=== PATIENT | female | born 1970 | race Caucasian/White ===

== ENCOUNTER 2016-12-26 11:20 | Emergency (ER) | payer BC ==
[~2016-12-26] VITALS: Ht 160 cm; Wt 115.4 kg
[~2016-12-26 11:20] MED LIST: MTR600X PO; OXYC-643 PO
[2016-12-26 11:22] VITALS: TEMP 36.5; Ht 160 cm; Wt 115.4 kg
--- NOTE | 2016-12-26 11:57 | DIAGNOSTIC IMAGING REPORT ---
CHEST ONE VIEW PORTABLE CLINICAL HISTORY: Dizziness. Nausea. COMPARISON STUDY: No previous studies for comparison. FINDINGS: Lung volumes are normal. Lungs are clear. There is no pneumothorax or pleural effusion. Cardiac size is normal. Mediastinal contours are normal. There is no evidence of pulmonary edema. IMPRESSION: No acute cardiopulmonary findings. Electronically signed by: Nayan Rodrigez M.D. 12/26/2016 11:56 AM Dictated Date/Time: 12/26/2016 11:55 AM
[2016-12-26] MEDS ORDERED: ELUX1TAB2 PO (12:03)
[2016-12-26] MEDS ORDERED: CLONIDINE HCL 0.1 MG TAB PO ONE (12:15)
[2016-12-26 12:23] LABS: URINE APPEARANCE CLEAR (CLEAR); URINE BILIRUBIN NEG (NEG); URINE COLOR YELLOW; URINE EPITHELIAL CELL AUTO >30 /lpf (0-5); URINE NITRITE NEG (NEG); URINE SPECIFIC GRAVITY 1.013 (1.000-1.030); UROBILINOGEN NEG (NEG); ZZUR CULT IF INDIC CLEAN CATCH NO
[2016-12-26 12:24] LABS: BASO % 0.6 %; BASO ABS # 0.03 K/uL (0-0.2); COMPLETE YES; EOS % 1.2 %; HEMATOCRIT 42.3 % (37-47); IG% 0.2 %; LYMPH % 22.2 %; LYMPH ABS # 1.12 K/uL (1.2-3.4); MEAN CELL VOLUME 88.7 fL (80-100); MEAN CORPUSCULAR HEMOGLOBIN 29.6 pg (25-34); MEAN CORPUSCULAR HGB CONC 33.3 g/dl (32-36); MEAN PLATELET VOLUME 11.4 fL (7.4-10.4); MONO % 8.3 %; NEUT % 67.5 %; PLATELET COUNT 236 K/uL (130-400); RED BLOOD COUNT 4.77 M/uL (4.2-5.4); WHITE BLOOD COUNT 5.05 K/uL (4.8-10.8)
[2016-12-26] MEDS ORDERED: ONDANSETRON 4MG OD TAB PO ONE (12:30)
[2016-12-26 12:32] LABS: MANUAL MICROSCOPIC REQUIRED? NO; REVIEW REQ? NO
[2016-12-26 12:45] LABS: BUN/CREATININE RATIO 8.6 (10-20); CREATININE 0.88 mg/dl (0.60-1.20); POTASSIUM 3.6 mmol/L (3.5-5.1)
[2016-12-26 12:55] LABS: ALB/GLOB RATIO 1.1 (0.9-2); CKMB/CK RATIO 0.7 (0-3.0); THYROID STIMULATING HORMONE 2.21 uIu/ml (0.300-4.500)
--- NOTE | 2016-12-26 13:05 | DIAGNOSTIC IMAGING REPORT ---
HEAD CT NONCONTRAST CT DOSE: 537.48 mGy.cm HISTORY: Syncope. Head injury. TECHNIQUE: Multiaxial CT images of the head were performed without the use of intravenous contrast. Automated exposure control was utilized for this study. Comparison: None. Findings: The paranasal sinuses and mastoid air cells are clear. The calvarium and skull base are intact. The ventricles and sulci are within normal limits. There is no mass, hematoma, midline shift, or acute infarct. Impression: No acute intracranial abnormality. Electronically signed by: Abdirashid Munoz M.D. 12/26/2016 1:03 PM Dictated Date/Time: 12/26/2016 1:00 PM
[2016-12-26] MEDS ORDERED: HYDR12.55 PO (13:39)
--- NOTE | 2016-12-26 13:39 | EMERGENCY ROOM VISIT NOTE ---
History Report prepared by Anabela: Aric Power Under the Supervision of: Dr. Viraj Wells D.O. First contact with patient: 12:02 Chief Complaint: DIZZY Stated Complaint: LIGHTHEADED, DIZZY,NAUSEA-FELL LAST PM-BLACKED OUT Nursing Triage Summary: Became dizzy last night and blacked out. Has been dizzy ever since. History of Present Illness The patient is a 46 year old female who presents to the Emergency Room with complaints of a syncopal episode that occurred around 2029 last night. She says that she was lying in bed last night, and heard her phone ring so she got up and walked to her dresser to get her phone. The patient says that she started to get dizzy, lightheaded, and nauseous when she was walking to the dresser. She then read the text message, and then passed out and fell back onto the floor. The patient says that she does not know how long she was out. She says that when she woke up, she was still dizzy and it was hard for her to walk, so she crawled back into bed. The patient states that she is now able to ambulate fine, but she has persistently felt dizzy, lightheaded, and nauseous. She notes that she started getting a headache localized around her forehead 2 days ago, but did not think much of it. She says that this headache has persisted. The patient denies any weakness in her arms or legs. The patient's family notes that the patient had her blood pressure last checked in March of last year, and it was 110/86. The patient started a new medication for irritable bowel syndrome, and started it in March of last year as well. The patient's family notes that the patient has been stressed recently. Source of History: patient, family Onset: 2029 Position: other (global - syncope) Timing: other (episode) Associated Symptoms: + headache (for 2 days around forehead), + nausea, No weakness (in arms or legs) Note: Associated symptoms: Dizziness, lightheadedness. Denies current ambulatory difficulties. Review of Systems See HPI for pertinent positives & negatives. A total of 10 systems reviewed and were otherwise negative. Past Medical & Surgical Medical Problems: (1) IBS (irritable bowel syndrome) Family History Cancer Diabetes mellitus Gallbladder disease Heart disease Hypertension Kidney disease Seizures Social History Smoking Status: Never Smoker Smokeless Tobacco Use: No Alcohol Use: none Marital Status: Housing Status: lives alone Occupation Status: employed Current/Historical Medications Scheduled Eluxadoline (Viberzi), 100 MG PO BID Hydrochlorothiazide (Hydrochlorothiazide), 1 TAB PO DAILY Allergies Coded Allergies: Prednisone (Unverified Allergy, Intermediate, BLOTCHES ALL OVER SKIN, 12/26) Physical Exam Vital Signs Date Time Temp Pulse Resp B/P Pulse Ox O2 Delivery O2 Flow Rate FiO2 12/26/16 13:50 71 18 130/91 96 Room Air 12/26/16 13:21 71 18 153/89 99 Room Air 12/26/16 12:39 73 16 178/107 98 Room Air 12/26/16 12:02 72 12/26/16 11:36 92 240/128 77 179/126 81 196/158 12/26/16 11:22 36.5 68 20 200/109 98 Room Air Physical Exam VITAL SIGNS: were reviewed as above. GENERAL:Non-toxic in appearance. SKIN: Warm dry and pink. HEAD: Normocephalic and atraumatic. OROPHARYNX: Is clear and moist NECK: Supple without lymphadenopathy or meningismus. LUNGS: clear. HEART: Regular rate and rhythm. ABDOMEN: Soft and nontender. EXTREMITIES: Warm and well perfused. NEUROLOGICALLY: Awake alert and oriented without focal deficit. Cranial nerves 2 -12 are intact. There is no pronator drift. Cerebellar testing is within normal limits. There is no nystagmus. There is no facial droop. Speech is clear. Vision is grossly normal. MUSCULOSKELETAL: Good muscle tone. No evidence of trauma. Medical Decision & Procedures ER Provider Diagnostic Interpretation: Radiology results as stated below per my review and radiologist interpretation: CHEST ONE VIEW PORTABLE CLINICAL HISTORY: Dizziness. Nausea. COMPARISON STUDY: No previous studies for comparison. FINDINGS: Lung volumes are normal. Lungs are clear. There is no pneumothorax or pleural effusion. Cardiac size is normal. Mediastinal contours are normal. There is no evidence of pulmonary edema. IMPRESSION: No acute cardiopulmonary findings. Electronically signed by: Nayan Rodrigez M.D. 12/26/2016 11:56 AM Dictated Date/Time: 12/26/2016 11:[address] CT DOSE: 537.48 mGy.cm HISTORY: Syncope. Head injury. TECHNIQUE: Multiaxial CT images of the head were performed without the use of intravenous contrast. Automated exposure control was utilized for this study. Comparison: None. Findings: The paranasal sinuses and mastoid air cells are clear. The calvarium and skull base are intact. The ventricles and sulci are within normal limits. There is no mass, hematoma, midline shift, or acute infarct. Impression: No acute intracranial abnormality. Electronically signed by: Abdirashid Munoz M.D. 12/26/2016 1:03 PM Dictated Date/Time: 12/26/2016 1:00 PM Laboratory Results 12/26/16 12:00 Red Blood Count 4.77, Mean Corpuscular Volume 88.7, Mean Corpuscular Hemoglobin 29.6, Mean Corpuscular Hemoglobin Concent 33.3, Mean Platelet Volume 11.4, Neutrophils (%) (Auto) 67.5, Lymphocytes (%) (Auto) 22.2, Monocytes (%) (Auto) 8.3, Eosinophils (%) (Auto) 1.2, Basophils (%) (Auto) 0.6, Neutrophils # (Auto) 3.41, Lymphocytes # (Auto) 1.12, Monocytes # (Auto) 0.42, Eosinophils # (Auto) 0.06, Basophils # (Auto) 0.03 12/26/16 12:00 Test 12/26/16 11:35 12/26/16 12:00 12/26/16 12:02 Urine Color YELLOW Urine Appearance CLEAR (CLEAR) Urine pH 8.0 (4.5-7.5) Urine Specific Victor 1.013 (1.000-1.030) Urine Protein NEG (NEG) Urine Glucose (UA) NEG (NEG) Urine Ketones NEG (NEG) Urine Occult Blood NEG (NEG) Urine Nitrite NEG (NEG) Urine Bilirubin NEG (NEG) Urine Urobilinogen NEG (NEG) Urine Leukocyte Esterase NEG (NEG) Urine WBC (Auto) 1-5 /hpf (0-5) Urine RBC (Auto) 0-4 /hpf (0-4) Urine Hyaline Casts (Auto) 1-5 /lpf (0-5) Urine Epithelial Cells (Auto) >30 /lpf (0-5) Urine Bacteria (Auto) NEG (NEG) White Blood Count 5.05 K/uL (4.8-10.8) Red Blood Count 4.77 M/uL (4.2-5.4) Hemoglobin 14.1 g/dL (12.0-16.0) Hematocrit 42.3 % (37-47) Mean Corpuscular Volume 88.7 fL (80-100) Mean Corpuscular Hemoglobin 29.6 pg (25-34) Mean Corpuscular Hemoglobin Concent 33.3 g/dl (32-36) Platelet Count 236 K/uL (130-400) Mean Platelet Volume 11.4 fL (7.4-10.4) Neutrophils (%) (Auto) 67.5 % Lymphocytes (%) (Auto) 22.2 % Monocytes (%) (Auto) 8.3 % Eosinophils (%) (Auto) 1.2 % Basophils (%) (Auto) 0.6 % Neutrophils # (Auto) 3.41 K/uL (1.4-6.5) Lymphocytes # (Auto) 1.12 K/uL (1.2-3.4) Monocytes # (Auto) 0.42 K/uL (0.11-0.59) Eosinophils # (Auto) 0.06 K/uL (0-0.5) Basophils # (Auto) 0.03 K/uL (0-0.2) RDW Standard Deviation 43.6 fL (36.4-46.3) RDW Coefficient of Variation 13.3 % (11.5-14.5) Immature Granulocyte % (Auto) 0.2 % Immature Granulocyte # (Auto) 0.01 K/uL (0.00-0.02) Anion Gap 8.0 mmol/L (3-11) Est Creatinine Clear Calc Drug Dose 96.8 ml/min Estimated GFR () 90.7 Estimated GFR (Non- 78.2 BUN/Creatinine Ratio 8.6 (10-20) Calcium Level 9.0 mg/dl (8.5-10.1) Total Bilirubin 0.3 mg/dl (0.2-1) Aspartate Amino Transf (AST/SGOT) 16 U/L (15-37) Alanine Aminotransferase (ALT/SGPT) 32 U/L (12-78) Alkaline Phosphatase 61 U/L (45-117) Total Creatine Kinase 117 U/L (26-192) Creatine Kinase MB 0.8 ng/ml (0.5-3.6) Creatine Kinase MB Ratio 0.7 (0-3.0) Total Protein 7.5 gm/dl (6.4-8.2) Albumin 3.9 gm/dl (3.4-5.0) Globulin 3.6 gm/dl (2.5-4.0) Albumin/Globulin Ratio 1.1 (0.9-2) Thyroid Stimulating Hormone (TSH) 2.210 uIu/ml (0.300-4.500) Bedside Troponin I 0.010 ng/ml (0-0.045) Laboratory results as stated above per my review. Medications Administered Medications (Trade) Dose Ordered Sig/[place] Route Start Time Stop Time Status Last Admin Dose Admin Clonidine HCl (Catapres Tab) 0.1 mg NOW ONCE PO 12/26/16 12:15 12/26/16 12:16 DC 12/26/16 12:40 0.1 MG Ondansetron HCl (Zofran Odt) 4 mg ONE ONCE PO 12/26/16 12:30 12/26/16 12:31 DC 12/26/16 12:41 4 MG ECG Indication: syncope Rate (beats per minute): 69 Rhythm: normal sinus Findings: no ectopy, other (no acute injury) ED Course 1215: Ordered Catapres Tab 0.1 mg PO. 1217: Previous medical records were reviewed. The patient was evaluated in room C5. A complete history and physical examination was performed. 1230: Ordered Zofran Odt 4 mg PO. 1325: On reevaluation, the patient is resting comfortably. I discussed the results and findings with the patient. She verbalized agreement of the treatment plan. She was discharged home. Medical Decision Differential includes acute coronary syndrome, myocardial infarction, CVA, TIA, anemia, infection, pneumonia, UTI, pyelonephritis, poor nutrition, dehydration, electrolyte disturbance,hypoglycemia. I attest that I have personally reviewed the patient's current medication list. Patient was found to have an elevated blood pressure and was referred to their primary doctor for recheck and further treatment. This is a 46-year-old female who presents to the ED with a chief complaint of dizziness. The patient states that around 8:30 PM yesterday evening she got up to answer a phone call and felt dizzy and lightheaded and states that she blacked out. She awoke on the floor. She complained of a headache yesterday in the frontal area. The patient states that she awoke this morning and a little nauseated and little dizzy with a frontal headache as well. She states that her dizziness comes and goes at this point. She denies any other significant symptoms. She has been on a medication for irritable bowel syndrome for the past 9 months. At that time, the patient's blood pressure was normal. She has not had her blood pressure checked since that time. The patient denies having any pain or other significant symptoms other than the mild frontal headache. Her neurologic exam was completely normal. Her physical exam was unremarkable. EKG shows a normal sinus rhythm. CBC and complete metabolic panel normal. TSH is normal. Troponin is negative. Urine did not show infection. A CT scan of the head and a chest x-ray were negative for acute disease. The patient was told the results. She was treated with clonidine by mouth 0.1 mg. Blood pressure initially was 196/158. When I saw her and used a large cuff, it was 178 up from 107. After clonidine it was 156 systolic. The patient was told the results. She is feeling better at this time. She has no symptoms at the time of disposition. She will be discharged on hydrochlorothiazide close follow-up with PCP. Impression Primary Impression: Hypertension Additional Impression: Dizziness Scribe Attestation The scribe's documentation has been prepared under my direction and personally reviewed by me in its entirety. I confirm that the note above accurately reflects all work, treatment, procedures, and medical decision making performed by me. Departure Information Dispostion Home / Self-Care Prescriptions Hydrochlorothiazide (HYDROCHLOROTHIAZIDE) 12.5 Mg Tab 1 TAB PO DAILY for 30 Days, #15 TAB 1 Refill Prov: Viraj Wells D.O. 12/26/16 Referrals Shelby Meyers PA-C (PCP) Patient Instructions Hypertension Dc, My [facility] Additional Instructions Hydrochlorothiazide as prescribed for elevated blood pressure. Follow-up with PCP in the next 1-7 days for recheck. Return for worsening or new concerns. Problem Qualifiers
[2016-12-26 13:50] VITALS: BP 130/91; PULSE 71; O2SAT 96
== END 2016-12-26 14:09 | disposition home or self-care (01) ==
LOC: C.EDB 11:22 → C.EDC 14:09
DX: I10 Essential (primary) hypertension (principal); R42 Dizziness and giddiness; K58.9 Irritable bowel syndrome, unspecified; Z80.9 Family history of malignant neoplasm, unspecified; Z83.3 Family history of diabetes mellitus; Z82.49 Family history of ischemic heart disease and other diseases of the circulatory system; Z84.1 Family history of disorders of kidney and ureter; Z82.0 Family history of epilepsy and other diseases of the nervous system; Z79.899 Other long term (current) drug therapy

== ENCOUNTER 2016-12-30 09:07 | Emergency (ER) | payer BC ==
[~2016-12-30] VITALS: Ht 160 cm; Wt 115.5 kg
[~2016-12-30 09:07] MED LIST changes: +ELUX1TAB2 PO; +HYDR12.55 PO; -MTR600X PO; -OXYC-643 PO
[2016-12-30 09:12] VITALS: TEMP 37; Ht 160 cm; Wt 115.5 kg
[2016-12-30 09:24] VITALS: O2SAT 98
[2016-12-30] MEDS ORDERED: HYDR12.56 PO (09:27)
[2016-12-30 10:06] LABS: BASO ABS # 0.05 K/uL (0-0.2); COMPLETE YES; EOS % 2.5 %; IG% 0.2 %; LYMPH % 28.1 %; LYMPH ABS # 1.35 K/uL (1.2-3.4); MEAN CELL VOLUME 88.2 fL (80-100); MEAN CORPUSCULAR HEMOGLOBIN 28.7 pg (25-34); MEAN CORPUSCULAR HGB CONC 32.5 g/dl (32-36); MEAN PLATELET VOLUME 10.9 fL (7.4-10.4); NEUT % 57.2 %; PLATELET COUNT 268 K/uL (130-400); RED BLOOD COUNT 4.99 M/uL (4.2-5.4); WHITE BLOOD COUNT 4.81 K/uL (4.8-10.8)
[2016-12-30 10:15] LABS: ALT/SGPT 31 U/L (12-78); BLOOD UREA NITROGEN 14 mg/dl (7-18); BUN/CREATININE RATIO 14.1 (10-20); CARBON DIOXIDE 29 mmol/L (21-32); CHLORIDE 105 mmol/L (98-107); GLUCOSE 88 mg/dl (70-99); POTASSIUM 3.4 mmol/L (3.5-5.1); SODIUM 142 mmol/L (136-145)
[2016-12-30 10:16] LABS: CALCIUM 9.1 mg/dl (8.5-10.1)
[2016-12-30 10:20] LABS: ALKALINE PHOSPHATASE 63 U/L (45-117); AST/SGOT 17 U/L (15-37); CKMB/CK RATIO 0.6 (0-3.0)
--- NOTE | 2016-12-30 10:21 | EMERGENCY ROOM VISIT NOTE ---
History Report prepared by Anabela: Natalie Mchugh Under the Supervision of: Dr. Chivo Connelly M.D. First contact with patient: 09:49 Chief Complaint: CARDIAC ASSESSMENT Stated Complaint: BP HIGH,NECK TINGLY, FEEL WEIRD Nursing Triage Summary: Patient presents with c/o hypertension, rapid heartrate, chest pain, and tingling sensation in right neck Symptoms began last night but worsened today around 0630 Patient has taken her blood pressure medication (HCTZ 12.5mg daily) today History of Present Illness The patient is a 46 year old female who presents to the Emergency Room for a cardiac assessment. The patient reports a rapid heart rate and tingling in her neck. She notes pressure behind her right ear. Her symptoms began last night and worsened this morning while she was at work. The patient was seen in the ED last week after an episode of syncope. She was diagnosed with hypertension and started on 12.5mg of HCTZ daily. She has been monitoring her blood pressure at home since then. 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 The patient states that she "felt weird this morning" but she did not pass out or get dizzy. She denies headache, nausea, vomiting, chest pain, and shortness of breath. The patient called her PCP today and was advised to come to the ED for further evaluation. She has a follow-up appointment scheduled with her PCP in 2 days. The patient states that she is currently feeling a little anxious. She rates her current pain as a 5/10 in severity. She does not take any blood thinners. Source of History: patient Onset: COMPUTER LABORATORY TECHNICIAN Position: other (global) Symptom Intensity: 5/10 Quality: other (tingling) Timing: constant Associated Symptoms: No LOC, No SOB, No chest pain, No headache, No nausea, No vomiting Note: Pt reports a rapid heart rate. Review of Systems See HPI for pertinent positives & negatives. A total of 10 systems reviewed and were otherwise negative. Past Medical & Surgical Medical Problems: (1) IBS (irritable bowel syndrome) Old medical records were reviewed. Nurse's notes were reviewed and I agree with. Family History Cancer Diabetes mellitus Gallbladder disease Heart disease Hypertension Kidney disease Seizures Social History Smoking Status: Never Smoker Alcohol Use: none Marital Status: Housing Status: lives alone Occupation Status: employed Current/Historical Medications Scheduled Eluxadoline (Viberzi), 100 MG PO BID Hydrochlorothiazide (Hctz), 12.5 MG PO DAILY Allergies Coded Allergies: Prednisone (Unverified Allergy, Intermediate, BLOTCHES ALL OVER SKIN, 12/30) Physical Exam Vital Signs Date Time Temp Pulse Resp B/P Pulse Ox O2 Delivery O2 Flow Rate FiO2 12/30/16 11:12 80 20 144/108 95 Room Air 12/30/16 09:48 75 18 145/100 98 Room Air 12/30/16 09:25 81 18 157/108 97 12/30/16 09:24 98 Room Air 12/30/16 09:24 74 12/30/16 09:12 37.0 78 20 164/110 97 Room Air Physical Exam General: Well developed well nourished non ill appearing middle aged female in no acute distress, breathing comfortably on room air. Normal speech HEENT: Normal cephalic atraumatic. Pupils are equal round and reactive to light. Extraocular movements are intact. Oropharynx is pink with moist mucous membranes. No swelling of the mouth lips or tongue. Neck: Supple with a midline trachea. No meningeal signs or stiffness, no JVD or bruits. No Stridor. No masses or tenderness. Chest: Clear to auscultation bilaterally. No wheezes or rhonchi. No increased work of breathing. Heart: regular rate and rhythm. Abdomen: Soft nontender, nondistended without rebound guarding or rigidity. Extremities: No cyanosis clubbing or edema. No calf tenderness or assymetry Spine/Back. Non tender to palpation. No CVA tenderness Skin: Good turgor without rashes. Neurologic exam: Cranial nerves two through 12 are intact. Motor and sensation are intact and symmetrical throughout. Medical Decision & Procedures ER Provider Diagnostic Interpretation: Radiology results as stated below per my review and radiologist interpretation: CHEST ONE VIEW PORTABLE HISTORY: Atypical CHEST PAIN COMPARISON: Chest 12/26/2016. FINDINGS: The lungs are clear. Cardiac silhouette is normal in size. No pleural effusions. No pneumothorax. IMPRESSION: No acute process. Electronically signed by: Abdirashid Munoz M.D. 12/30/2016 10:17 AM Dictated Date/Time: 12/30/2016 10:16 AM Laboratory Results 12/30/16 09:25 Red Blood Count 4.99, Mean Corpuscular Volume 88.2, Mean Corpuscular Hemoglobin 28.7, Mean Corpuscular Hemoglobin Concent 32.5, Mean Platelet Volume 10.9, Neutrophils (%) (Auto) 57.2, Lymphocytes (%) (Auto) 28.1, Monocytes (%) (Auto) 11.0, Eosinophils (%) (Auto) 2.5, Basophils (%) (Auto) 1.0, Neutrophils # (Auto ) 2.75, Lymphocytes # (Auto) 1.35, Monocytes # (Auto) 0.53, Eosinophils # (Auto ) 0.12, Basophils # (Auto) 0.05 12/30/16 09:25 Test 12/30/16 09:25 12/30/16 10:05 White Blood Count 4.81 K/uL (4.8-10.8) Red Blood Count 4.99 M/uL (4.2-5.4) Hemoglobin 14.3 g/dL (12.0-16.0) Hematocrit 44.0 % (37-47) Mean Corpuscular Volume 88.2 fL (80-100) Mean Corpuscular Hemoglobin 28.7 pg (25-34) Mean Corpuscular Hemoglobin Concent 32.5 g/dl (32-36) Platelet Count 268 K/uL (130-400) Mean Platelet Volume 10.9 fL (7.4-10.4) Neutrophils (%) (Auto) 57.2 % Lymphocytes (%) (Auto) 28.1 % Monocytes (%) (Auto) 11.0 % Eosinophils (%) (Auto) 2.5 % Basophils (%) (Auto) 1.0 % Neutrophils # (Auto) 2.75 K/uL (1.4-6.5) Lymphocytes # (Auto) 1.35 K/uL (1.2-3.4) Monocytes # (Auto) 0.53 K/uL (0.11-0.59) Eosinophils # (Auto) 0.12 K/uL (0-0.5) Basophils # (Auto) 0.05 K/uL (0-0.2) RDW Standard Deviation 42.2 fL (36.4-46.3) RDW Coefficient of Variation 13.1 % (11.5-14.5) Immature Granulocyte % (Auto) 0.2 % Immature Granulocyte # (Auto) 0.01 K/uL (0.00-0.02) Anion Gap 8.0 mmol/L (3-11) Est Creatinine Clear Calc Drug Dose 85.2 ml/min Estimated GFR () 77.7 Estimated GFR (Non- 67.0 BUN/Creatinine Ratio 14.1 (10-20) Calcium Level 9.1 mg/dl (8.5-10.1) Total Bilirubin 0.4 mg/dl (0.2-1) Direct Bilirubin < 0.1 mg/dl (0-0.2) Aspartate Amino Transf (AST/SGOT) 17 U/L (15-37) Alanine Aminotransferase (ALT/SGPT) 31 U/L (12-78) Alkaline Phosphatase 63 U/L (45-117) Total Creatine Kinase 109 U/L (26-192) Creatine Kinase MB 0.6 ng/ml (0.5-3.6) Creatine Kinase MB Ratio 0.6 (0-3.0) Total Protein 8.1 gm/dl (6.4-8.2) Albumin 4.1 gm/dl (3.4-5.0) Lipase 143 U/L (73-393) Bedside Troponin I 0.000 ng/ml (0-0.045) Laboratory studies as stated above per my review. ECG Indication: palpitations Rate (beats per minute): 74 Rhythm: normal sinus Findings: no acute ischemic change, no ectopy Comparison ECG Date: 12/26/2016 Change: no significant change ED Course 0949: Past medical records reviewed. The patient was evaluated in room B9, and a complete history and physical examination were performed. 1113: I reassessed the patient at this time. She is feeling better and resting comfortably. I discussed the results and treatment plan with the patient. I answered all pertaining questions that she had. She expressed understanding and verbalized agreement. The patient will be discharged home. Medical Decision Differential diagnoses includes hypertension, cardiac disease, arrhythmia, neurological problems, vascular process, anxiety. Medication Reconciliation: I attest that I have personally reviewed the patient' s current medication list. Blood Pressure Screening: The patient is currently being treated for hypertension and is going to follow-up with her PCP. This patient comes in as described above. She was placed in room B9. She is here for treatment and evaluation of high blood pressure. She's had some vague sensation on her neck on the right. On exam, she has no swelling. She has a normal neurologic exam. She has no numbness or weakness. She was recently started on medications for high blood pressure has on HCTZ 12.5 mg. Her blood pressure is down significantly compared to when I ordered was at home at and was 140/100. She has no evidence to suggest hypertensive emergency or acute in organ damage. Multiple blood testing was obtained and did review her recent visit and she had a negative CAT scan of her head at the time. EKG does not suggest acute coronary syndrome or arrhythmia. He has remained stable. Blood pressure is only mildly elevated. She was just started on HCTZ. I told her she could increase this to 25 mg a day and follow her appointment up with her doctor on Friday. She has nothing to suggest acute CVA or neurologic process. She has no acute electrolyte or metabolic abnormalities. She will be discharged home with close follow-up. Impression Primary Impression: Hypertension Additional Impression: Neck pain Scribe Attestation The scribe's documentation has been prepared under my direction and personally reviewed by me in its entirety. I confirm that the note above accurately reflects all work, treatment, procedures, and medical decision making performed by me. Departure Information Dispostion Home / Self-Care Referrals No Doctor, Assigned (PCP) Forms IMPORTANT VISIT INFORMATION Patient Instructions My [facility] Additional Instructions REst Increase your HCTZ to 25 mg a day from 12.5 mg aday Return if: worsening of symptoms,, chest pain, shortness breath, numbness weakness, any problems or concerns. Check and log your blood pressure frequently and follow-up with your doctor on Friday. Problem Qualifiers Primary Impression: Hypertension Hypertension type: unspecified secondary hypertension Qualified Codes: I15.9 - Secondary hypertension, unspecified
[2016-12-30 11:12] VITALS: BP 144/108; PULSE 80; O2SAT 95
== END 2016-12-30 11:35 | disposition home or self-care (01) ==
LOC: C.EDB 09:09
DX: I10 Essential (primary) hypertension (principal); M54.2 Cervicalgia; K58.9 Irritable bowel syndrome, unspecified; Z83.3 Family history of diabetes mellitus; Z82.49 Family history of ischemic heart disease and other diseases of the circulatory system; Z82.0 Family history of epilepsy and other diseases of the nervous system

== ENCOUNTER 2019-01-03 12:35 | Inpatient (IN) ==
[2019-01-03] MEDS ORDERED: ONDANSETRON INJ 2 MG/ML 2 ML VIAL IV STA (12:56)
[2019-01-03] MEDS ORDERED: SODIUM CHLORIDE 0.9% 1000ML 2,000 ML IV ONE (12:56)
[2019-01-03] MEDS ORDERED: MoRPHine SULFATE 4 MG/ML 1 ML CARP\\VIAL IV STA (12:57)
[2019-01-03 13:13] LABS: Basophils # (auto) 0.03 K/uL (0-0.2); Basophils % (auto) 0.3 %; Eosinophils # (auto) 0.07 K/uL (0-0.5); Eosinophils % (auto) 0.8 %; Hematocrit (blood only) 43.7 % (37-47); Hemoglobin 14.4 g/dL (12.0-16.0); Immature Granulocytes # (auto) 0.01 K/uL (0.00-0.02); Immature Granulocytes % (auto) 0.1 %; Lymphocytes # (auto) 0.68 K/uL (1.2-3.4); Lymphocytes % (auto) 7.3 %; Mean Corpuscular Volume 87.9 fL (80-100); Mean Platelet Volume 11.2 fL (7.4-10.4); Monocytes # (auto) 0.64 K/uL (0.11-0.59); Monocytes % (auto) 6.9 %; Neutrophils # (auto) 7.86 K/uL (1.4-6.5); Neutrophils % (auto) 84.6 %; Platelet Count 220 K/uL (130-400); RDW Coefficient of Variation 13.5 % (11.5-14.5); RDW Standard Deviation 43.4 fL (36.4-46.3); Red Blood Count 4.97 M/uL (4.2-5.4); White Blood Count 9.29 K/uL (4.8-10.8)
[2019-01-03 13:29] LABS: Albumin Level 4.1 gm/dl (3.4-5.0); BUN Creatinine Ratio 11.3 (10-20); Calcium 9.2 mg/dl (8.5-10.1); Creatinine Clr Calc Pharmacy 86.8 ml/min; Est GFR (African American) 81.5; Est GFR (Non-African American) 70.3; Potassium 3.5 mmol/L (3.5-5.1)
[2019-01-03 13:32] LABS: Albumin Globulin Ratio 1.1 (0.9-2); Bilirubin,Total 0.8 mg/dl (0.2-1); Globulin 3.8 gm/dl (2.5-4.0); Total Protein 7.9 gm/dl (6.4-8.2)
--- NOTE | 2019-01-03 14:01 | Ultrasound Report ---
ULTRASOUND RIGHT UPPER QUADRANT ABDOMEN CLINICAL HISTORY: Right upper quadrant abdominal pain. COMPARISON STUDY: Abdominal ultrasound dated 12/08/2018. TECHNIQUE: Real-time, grayscale, and color flow sonography of the right upper quadrant of the abdomen was performed. Images are reviewed in the transverse and longitudinal planes. FINDINGS: Liver: The liver is normal in size and demonstrates heterogeneously echotexture consistent with hepat ic steatosis. Fatty sparing is seen adjacent to gallbladder fossa. There is no intrahepatic biliary d uctal dilatation. The main portal vein is patent. Gallbladder: There are large calcified gallstones which measure up to at least 1.7 cm. The gallbladde r is otherwise normal in appearance. There is no gallbladder wall thickening or pericholecystic fluid . A sonographic Rolle's sign is reportedly absent. The common bile duct measures up to 0.5 cm in phill meter. Pancreas: Visualized portions of the pancreatic head and body are normal in appearance. The splenic v ein is patent. Right kidney: Survey images of the right kidney demonstrate normal size and echotexture. There is no hydronephrosis. Ascites: None. IMPRESSION: 1. Cholelithiasis without sonographic evidence of acute cholecystitis. 2. Hepatic steatosis. Electronically signed by: Jigar Jimenez M.D. 01/03/2019 2:00 PM
--- NOTE | 2019-01-03 15:12 | History & Physical Report ---
Date of Service January 03, 2019 Assessment & Plan (1) Epigastric pain: Known cholelithiasis. No previous history of peptic ulcer disease. She is scheduled for outpatient endoscopy later this week. Clear liquid diet at this time. Treat with Protonix and Carafate. GI consultation Present on Admission?: Yes (2) Transaminitis: Mild liver enzyme elevation. Will follow Present on Admission?: Yes (3) Hypertension: Treated with amlodipine and metoprolol Present on Admission?: Yes (4) DVT prophylaxis: Lovenox subcu History of Present Illness Chief Complaint: Recurrent epigastric pain, nausea, vomiting Primary Care Provider: Betty Mcgregor 48-year-old obese female with known cholelithiasis. She has recurrent epigastric discomfort and is scheduled to see a general surgeon tomorrow faisal muniz. She has outpatient EGD and colonoscopy scheduled later this week with Dr. Arias. She developed epigastric pain with nausea and vomiting early this morning which has persisted. Right upper quadrant ultrasound reveals cholelithiasis with no evidence of acute cholecystitis. She will be placed in observation status with clear liquid diet, IV fluids, Protonix and Carafate therapy. GI service will be consulted. Again, she has an appointment to see her director digital catalogue for endoscopy later this week. She also has an appointment with a general surgeon tomorrow morning. Hopefully she can go home early tomorrow morning and follow-up with her appointments. Allergies Allergy/AdvReac Type Severity Reaction Status Date / Time prednisone Allergy Intermediate BLOTCHES Verified 01/03/19 13:25 ALL OVER SKIN Home Medications Home Medications Medication Instructions Recorded Confirmed Type amlodipine [Norvasc] 5 mg PO QAM 12/22/18 01/03/19 History metoprolol succinate 25 mg PO BID 12/22/18 01/03/19 History Past Med/Surg History Medical History IBS (irritable bowel syndrome) (Chronic) Syncope (Acute) Hypertension (Acute) Neck pain (Acute) Gallbladder attack GERD (gastroesophageal reflux disease) Hypertension IBS (irritable bowel syndrome) Surgical History History of bilateral tubal ligation History of colonoscopy History of total hysterectomy with bilateral salpingo-oophorectomy (BSO) History of wisdom tooth extraction Family History Mother Family history of diabetes mellitus Aunt Family history of diabetes mellitus Family hx colonic polyps Sister Family history of diabetes mellitus Other No family history of adverse response to anesthesia Social History Preferred Language: Zambian Communication Ability: Effective Beliefs That Will Affect Care: None marital status: Current Living Situation: Alone current occupational status: employed Other Information That Helps Us Care for You: No Feels Safe at Home: Yes Safety Concerns: Feels Safe At This Time Smoking Status: Never smoker Second Hand Exposure: Yes (carpool second hand smoke) Hx Alcohol Use: No Hx Substance Use: No Review of Systems Review of Systems: All systems reviewed & are unremarkable except as noted in HPI & below Gastrointestinal: + abdominal pain, + nausea and + diarrhea/loose stools; no heartburn, no coffee ground emesis, no blood in stools and no melena Physical Exam Constitutional: + obese and cooperative; no acute distress, not intoxicated appearing, no altered mental status and not in distress Eyes: PERRL, conjunctivae normal, anicteric sclerae ENMT: external ear and nose normal, oropharynx normal Neck: trachea midline, no thyromegaly Respiratory: normal respiratory effort, lungs clear to auscultation Cardiovascular: RRR, no murmur, no edema Gastrointestinal (Abdomen): Inspection/Auscultation: abdomen normal to inspection and normal bowel sounds; abdomen not distended Percussion/Palpation: + abdomen tender (Epigastric tenderness.); no guarding, abdomen not rigid, no hepatosplenomegaly, no hepatomegaly, no pulsatile mass, no ascites and no fluid wave Musculoskeletal: no cyanosis or clubbing, extremities motor strength 5/5 Skin: no rashes, warm and dry Neurologic: CN's II-XI intact bilaterally and moves all extremities; no focal motor deficits Results & Data Vital Signs (Past 12 Hours) Vital Signs Temp Pulse Resp BP Pulse Ox 01/03/19 12:39 36.6 C 65 17 142/79 H 99 Laboratory Results 01/03/19 13:04 01/03/19 13:04
[2019-01-03 15:19] LABS: Appearance Urine Clear (Clear); Bacteria Urine Automated Negative (Negative); Bilirubin Urine Negative (Negative); Blood Urine Negative (Negative); Cast Urine Automated 0 /lpf (0-5); Color Urine Yellow; Glucose Urine UA Negative (Negative); Ketones Urine Negative (Negative); Leukocyte Esterase Urine Trace (Negative); Nitrite Urine Negative (Negative); Protein Urine Negative (Negative); RBC Urine Automated 0-4 /hpf (0-4); Specific Gravity Urine 1.009 (1.000-1.030); Urobilinogen Urine Negative (Negative); WBC Urine Automated 0 /hpf (0-5)
[2019-01-03] MEDS ORDERED: ALUMINUM/MAGNESIUM SUSP 30 ML UDC PO PRN (16:36)
[2019-01-03] MEDS ORDERED: ONDANSETRON INJ 2 MG/ML 2 ML VIAL IV PRN (16:36)
[2019-01-03] MEDS: SODIUM CHLORIDE 0.9% 1000ML 1,000 ML IV SCH (17:04)
[2019-01-03] MEDS: SUCRALFATE 1 GM/10 ML UDC PO SCH ×2 (17:18→20:20)
[2019-01-03 17:26] LABS: Partial Thromboplastin Ratio 0.9; Prothrombin Time 10.2 Seconds (9.0-12.0)
--- NOTE | 2019-01-03 18:58 | Emergency Department Note ---
Entered by Mounika Newton acting as a scribe for History of Present Illness General Chief complaint: Abdominal Pain Stated complaint: GALLBLADDER ATTACK Source: patient History of Present Illness Onset (ago): day(s) (today) Location: abdomen Severity: similar to prior episodes (gallbladder attacks) Pain Consistency: + other (episode) Maximum Pain Intensity: 6 Current Pain Intensity: 7 Quality: + stabbing and + aching Exacerbated By: + eating Associated symptoms: + denies other symptoms (pain with urination, burning with urination), + nausea/vomiting (vomiting) and + other (feels bloated); no fever/chills (fever) The patient is a 48 year old female who presents to the ED with complaints of an episode of abdominal pain starting today. The patient states that she has a history of issues with her gallbladder for the past year. She states that she had an ultrasound on it a few weeks ago and is scheduled to schedule surgery tomorrow with Dr. Self. She reports that her attacks have been getting worse. She note that she gets one every day, but they are becoming more painful. The patient states that she gets a stabbing pain in the middle of her abdomen that turns into an achiness. She states that along with it she feels bloated. She currently rates her pain as a 7/10 in severity. She notes that food makes it worse. The patient states that she came to the ED for this episode because she has vomited with it 4 times. She notes that this is not normal for her previous episodes. She notes that her last normal bowel movement was this morning. The patient denies fevers, pain with urination, burning with urination, and a history of an appendectomy. Home Medications Home Medications Medication Instructions Recorded Confirmed Type amlodipine [Norvasc] 5 mg PO QAM 12/22/18 01/03/19 History metoprolol succinate 25 mg PO BID 12/22/18 01/03/19 History Allergies Allergy/AdvReac Type Severity Reaction Status Date / Time prednisone Allergy Intermediate BLOTCHES Verified 01/03/19 13:25 ALL OVER SKIN Past Med/Surg History Medical History DVT prophylaxis Epigastric pain (Acute) Transaminitis (Acute) IBS (irritable bowel syndrome) (Chronic) Syncope (Acute) Hypertension (Chronic) Neck pain (Acute) Gallbladder attack GERD (gastroesophageal reflux disease) Hypertension IBS (irritable bowel syndrome) Surgical History History of bilateral tubal ligation History of colonoscopy History of total hysterectomy with bilateral salpingo-oophorectomy (BSO) History of wisdom tooth extraction Family History Mother Family history of diabetes mellitus Aunt Family history of diabetes mellitus Family hx colonic polyps Sister Family history of diabetes mellitus Other No family history of adverse response to anesthesia Social History Preferred Language: Bahamian Communication Ability: Effective Beliefs That Will Affect Care: None marital status: Current Living Situation: Alone current occupational status: employed Other Information That Helps Us Care for You: No Feels Safe at Home: Yes Safety Concerns: Feels Safe At This Time Smoking Status: Never smoker Second Hand Exposure: Yes (carpool second hand smoke) Hx Alcohol Use: No Hx Substance Use: No Review of Systems See HPI for pertinent positives & negatives. and A total of 10 systems reviewed and were otherwise negative Physical Exam Vital Signs Vital Signs - 24 hr 01/03/19 12:39 01/03/19 12:43 01/03/19 14:54 Temperature 36.6 C Temperature Source Oral Sepsis Recent Fever Within 48 Hours No Sepsis New/Unexplained Change in Mental Status No Sepsis Action Taken by Nursing No Action Required Pulse Rate 65 Pulse Rate [Left Finger] Respiratory Rate 17 Respiratory Effort / Characteristics Non-Labored Respiratory Depth Normal Respiratory Pattern Regular Blood Pressure 142/79 H Blood Pressure [Right Arm] Blood Pressure Mean 100 Blood Pressure Mean [Right Arm] Blood Pressure Position Sitting Pulse Oximetry 99 Oxygen Delivery Method Room Air Room Air Room Air 01/03/19 15:01 Temperature Temperature Source Sepsis Recent Fever Within 48 Hours Sepsis New/Unexplained Change in Mental Status Sepsis Action Taken by Nursing Pulse Rate Pulse Rate [Left Finger] 62 Respiratory Rate 20 Respiratory Effort / Characteristics Non-Labored Spontaneous Respiratory Depth Normal Respiratory Pattern Regular Blood Pressure Blood Pressure [Right Arm] 157/96 H Blood Pressure Mean Blood Pressure Mean [Right Arm] 116 Blood Pressure Position Pulse Oximetry 99 Oxygen Delivery Method Room Air GENERAL: obese, sitting up in bed, disheveled, mild distress, holding upper right quadrant EYE EXAM: normal conjunctiva OROPHARYNX: no exudate, no erythema, lips, buccal mucosa, and tongue normal and mucous membranes are moist NECK: supple, no nuchal rigidity, no adenopathy, non-tender LUNGS: Clear to auscultation. Normal chest wall mechanics HEART: no murmurs, S1 normal and S2 normal ABDOMEN: abdomen soft, tenderness to palpation in the right upper quadrant, normo-active bowel sounds, no masses, no rebound or guarding. BACK: Back is symmetrical on inspection and there is no deformity, no midline tenderness, no CVA tenderness. SKIN: no rashes and no bruising UPPER EXTREMITIES: upper extremities are grossly normal. LOWER EXTREMITIES: No pitting edema. NEURO EXAM: Normal sensorium, cranial nerves II-XII grossly intact, normal speec h, no gross weakness of arms, no gross weakness of legs. Course ED COURSE: Vital signs were reviewed and showed situational hypertension. The patients medical record was reviewed The above diagnostic studies were performed and reviewed. ED treatments and interventions as stated above. 1250: The patient was evaluated in room C12B. A complete history and physical examination was performed. 1443: I discussed the patient's case with Dr. Caitlyn MCCLAIN Hospitalist. They will evaluate the patient for further management. 1445: Upon reevaluation, the patient is resting comfortably. I discussed my findings with the patient and she understands and agrees with the treatment plan. Based on the patients age, coexisting illnesses, exam and lab findings the decision to treat as an inpatient was made. The patient remained stable while under my care. The patient will be evaluated for further management. Consultations Consultation #1: I discussed the patient's case with Dr. Caitlyn MCCLAIN Hospitalist. They will evaluate the patient for further management. Time: 14:43 Administered Medications Sodium Chloride (Nss 1000ml) 1,000 mls @ 80 mls/hr IV .[id number] AL Stop: 02/02/19 16:35 Last Admin: 01/03/19 17:04 Dose: 80 mls/hr Documented by: [id number] Sucralfate (Carafate) 1 gm PO QID AL Stop: 02/02/19 16:59 Last Admin: 01/03/19 17:18 Dose: 1 gm Documented by: [id number] Discontinued Medications Sodium Chloride (Nss 1000ml) 2,000 mls @ 999 mls/hr IV .Q2H1M ONE Stop: 01/03/19 14:56 Last Infusion: 01/03/19 15:40 Dose: 0 mls/hr Documented by: [id number] Admin: 01/03/19 13:30 Dose: 999 mls/hr Documented by: [id number] Morphine Sulfate (Morphine Sulfate) 4 mg IV NOW STA Stop: 01/03/19 12:58 Last Admin: 01/03/19 13:30 Dose: 4 mg Documented by: [id number] Ondansetron HCl (Zofran) 4 mg IV NOW STA Stop: 01/03/19 12:57 Last Admin: 01/03/19 13:30 Dose: 4 mg Documented by: [id number] Medical Decision Making Differential Diagnosis Differential diagnosis: Etiologies such as biliary colic, cholecystitis, hepatitis, perihepatitis, pancreatitis, cardiac disease, pancreatitis, gastritis, peptic ulcer disease, appendicitis, ovarian cyst, ovarian torsion, ectopic , pelvic inflammatory disease, cystitis, diverticulitis, mesenteric ischemia, inflammatory bowel disease, ileus, bowel obstruction, aortic pathology, shingles, as well as others were considered. Medical Records Attestation: I reviewed the patient's medical records. Home Medications Current Medication List: was personally reviewed by me Laboratory Data Attestation: I reviewed the patient's lab results. Result diagrams: 01/03/19 13:04 01/03/19 13:04 Lab Results 01/03/19 01/03/19 01/03/19 Range/Units 13:04 13:04 13:11 WBC 9.29 (4.8-10.8) K/uL RBC 4.97 (4.2-5.4) M/uL Hgb 14.4 (12.0-16.0) g/dL Hct 43.7 (37-47) % MCV 87.9 (80-100) fL MCH 29.0 (25-34) pg MCHC 33.0 (32-36) g/dL RDW Std Deviation 43.4 (36.4-46.3) fL RDW Coeff of Luiza 13.5 (11.5-14.5) % Plt Count 220 (130-400) K/uL MPV 11.2 H (7.4-10.4) fL Immature Gran % (Auto) 0.1 % Neut % (Auto) 84.6 % Lymph % (Auto) 7.3 % [place]m % (Auto) 6.9 % Eos % (Auto) 0.8 % Baso % (Auto) 0.3 % Immature Gran # (Auto) 0.01 (0.00-0.02) K/uL Neut # (Auto) 7.86 H (1.4-6.5) K/uL Lymph # (Auto) 0.68 L (1.2-3.4) K/uL [place] # (Auto) 0.64 H (0.11-0.59) K/uL Eos # (Auto) 0.07 (0-0.5) K/uL Baso # (Auto) 0.03 (0-0.2) K/uL PT 10.2 (9.0-12.0) Seconds INR 1.0 (0.9-1.1) APTT 24.0 (21.0-31.0) Seconds PTT Ratio 0.9 Sodium 143 (136-145) mmol/L Potassium 3.5 (3.5-5.1) mmol/L Chloride 108 H (98-107) mmol/L Carbon Dioxide 27 (21-32) mmol/L Anion Gap 8.0 (3-11) BUN 11 (7-18) mg/dl Creatinine 0.95 (0.6-1.2) mg/dl Est Cr Clr Drug Dosing 86.8 ml/min Est GFR ( Amer) 81.5 Est GFR (Non-Af Amer) 70.3 BUN/Creatinine Ratio 11.3 (10-20) Glucose 102 H (70-99) mg/dl Calcium 9.2 (8.5-10.1) mg/dl Total Bilirubin 0.8 (0.2-1) mg/dl AST 140 H (15-37) U/L ALT 113 H (12-78) U/L Alkaline Phosphatase 72 (45-117) U/L Total Protein 7.9 (6.4-8.2) gm/dl Albumin 4.1 (3.4-5.0) gm/dl Globulin 3.8 (2.5-4.0) gm/dl Albumin/Globulin Ratio 1.1 (0.9-2) Lipase 154 (73-393) U/L Urine Color Urine Appearance (Clear) Urine pH (4.5-7.5) Ur Specific Naylor (1.000-1.030) Urine Protein (Negative) Urine Glucose (UA) (Negative) Urine Ketones (Negative) Urine Blood (Negative) Urine Nitrite (Negative) Urine Bilirubin (Negative) Urine Urobilinogen (Negative) Ur Leukocyte Esterase (Negative) Urine WBC (Auto) (0-5) /hpf Urine RBC (Auto) (0-4) /hpf U Hyaline Cast (Auto) (0-5) /lpf U Epithel Cells (Auto) (0-5) /lpf Urine Bacteria (Auto) (Negative) 01/03/19 Range/Units 15:00 WBC (4.8-10.8) K/uL RBC (4.2-5.4) M/uL Hgb (12.0-16.0) g/dL Hct (37-47) % MCV (80-100) fL MCH (25-34) pg MCHC (32-36) g/dL RDW Std Deviation (36.4-46.3) fL RDW Coeff of Luiza (11.5-14.5) % Plt Count (130-400) K/uL MPV (7.4-10.4) fL Immature Gran % (Auto) % Neut % (Auto) % Lymph % (Auto) % [place] % (Auto) % Eos % (Auto) % Baso % (Auto) % Immature Gran # (Auto) (0.00-0.02) K/uL Neut # (Auto) (1.4-6.5) K/uL Lymph # (Auto) (1.2-3.4) K/uL [place] # (Auto) (0.11-0.59) K/uL Eos # (Auto) (0-0.5) K/uL Baso # (Auto) (0-0.2) K/uL PT (9.0-12.0) Seconds INR (0.9-1.1) APTT (21.0-31.0) Seconds PTT Ratio Sodium (136-145) mmol/L Potassium (3.5-5.1) mmol/L Chloride (98-107) mmol/L Carbon Dioxide (21-32) mmol/L Anion Gap (3-11) BUN (7-18) mg/dl Creatinine (0.6-1.2) mg/dl Est Cr Clr Drug Dosing ml/min Est GFR ( Amer) Est GFR (Non-Af Amer) BUN/Creatinine Ratio (10-20) Glucose (70-99) mg/dl Calcium (8.5-10.1) mg/dl Total Bilirubin (0.2-1) mg/dl AST (15-37) U/L ALT (12-78) U/L Alkaline Phosphatase (45-117) U/L Total Protein (6.4-8.2) gm/dl Albumin (3.4-5.0) gm/dl Globulin (2.5-4.0) gm/dl Albumin/Globulin Ratio (0.9-2) Lipase (73-393) U/L Urine Color Yellow Urine Appearance Clear (Clear) Urine pH 7.0 (4.5-7.5) Ur Specific Naylor 1.009 (1.000-1.030) Urine Protein Negative (Negative) Urine Glucose (UA) Negative (Negative) Urine Ketones Negative (Negative) Urine Blood Negative (Negative) Urine Nitrite Negative (Negative) Urine Bilirubin Negative (Negative) Urine Urobilinogen Negative (Negative) Ur Leukocyte Esterase Trace H (Negative) Urine WBC (Auto) 0 (0-5) /hpf Urine RBC (Auto) 0-4 (0-4) /hpf U Hyaline Cast (Auto) 0 (0-5) /lpf U Epithel Cells (Auto) 10-20 H (0-5) /lpf Urine Bacteria (Auto) Negative (Negative) Imaging Data Radiologist's Impression: Radiology results as stated below per my review and the radiologist's interpretation: ULTRASOUND RIGHT UPPER QUADRANT ABDOMEN CLINICAL HISTORY: Right upper quadrant abdominal pain. COMPARISON STUDY: Abdominal ultrasound dated 12/08/2018. TECHNIQUE: Real-time, grayscale, and color flow sonography of the right upper quadrant of the abdomen was performed. Images are reviewed in the transverse and longitudinal planes. FINDINGS: Liver: The liver is normal in size and demonstrates heterogeneously echotexture consistent with hepatic steatosis. Fatty sparing is seen adjacent to gallbladder fossa. There is no intrahepatic biliary ductal dilatation. The main portal vein is patent. Gallbladder: There are large calcified gallstones which measure up to at least 1.7 cm. The gallbladder is otherwise normal in appearance. There is no gallbladder wall thickening or pericholecystic fluid. A sonographic Rolle's sign is reportedly absent. The common bile duct measures up to 0.5 cm in diameter. Pancreas: Visualized portions of the pancreatic head and body are normal in appearance. The splenic vein is patent. Right kidney: Survey images of the right kidney demonstrate normal size and echotexture. There is no hydronephrosis. Ascites: None. IMPRESSION: 1. Cholelithiasis without sonographic evidence of acute cholecystitis. 2. Hepatic steatosis. Electronically signed by: Jigar Jimenez M.D. 01/03/2019 2:00 PM Blood Pressure Blood Pressure Findings: Elevated blood pressure Blood Pressure Disposition: elevated BP felt to be situational MDM Narrative Patient is a 42-year-old female who presents the ER for right upper quadrant abdominal pain. This is been present and intermittent for the past year. Patient has been following with general surgery and is currently scheduled/getting scheduled to have a cholecystectomy. She notes that this is similar pain but worse and did have an episode of vomiting. History of complete hysterectomy. Stabbing pain 7 out of 10. Labs were obtained and showed no significant leukocytosis or anemia. INR is unremarkable. BMP was unremarkable. Bilirubin was normal at 0.8. Mild transaminitis of 141/113. Lipase was normal. UA was unremarkable. With her pain and transaminitis following an ultrasound with a normal CBD but stones present was still concerned in regards of the transaminitis. Discussed with the hospitalist patient will be observed as she is still having severe right upper quadrant pain with transaminitis. Impression & Plan Right upper quadrant abdominal pain, Cholelithiasis, Transaminitis Discharge Plan Visit Data *Final* Discharge Date/Time: 01/03/19 16:27 Chief Complaint: Abdominal Pain Stated Complaint: GALLBLADDER ATTACK ED Provider: Yazan Pérez Discharge Problem: Right upper quadrant abdominal pain, Cholelithiasis, Transaminitis Patient Disposition: Admitted As Inpatient Discharge Instructions Interventions: ED Discharge Assessment Last Done: 01/03/19 16:27 Discharge Problem: Cholelithiasis Qualifiers: Cholelithiasis location: other site Biliary obstruction: without biliary obstruction Qualified Code(s): K80.80 - Other cholelithiasis without obstruction The scribe's documentation has been prepared under my direction and personally reviewed by me in its entirety. I confirm that the note above accurately reflects all work, treatment, procedures, and medical decision making performed by me.
[2019-01-03] MEDS: METOPROLOL SUCC 25MG EXT REL TAB PO SCH (20:19)
[2019-01-03] MEDS: ENOXAPARIN INJ 40 MG/0.4 ML SYR SQ SCH (20:21)
[2019-01-03] MEDS: PANTOprazole 40 MG TAB PO SCH (20:21)
[2019-01-04] MEDS: SODIUM CHLORIDE 0.9% 1000ML 1,000 ML IV SCH (05:20)
[2019-01-04 06:07] LABS: Basophils # (auto) 0.03 K/uL (0-0.2); Basophils % (auto) 0.9 %; Eosinophils # (auto) 0.18 K/uL (0-0.5); Eosinophils % (auto) 5.3 %; Hematocrit (blood only) 38.2 % (37-47); Hemoglobin 12.6 g/dL (12.0-16.0); Immature Granulocytes # (auto) 0.01 K/uL (0.00-0.02); Immature Granulocytes % (auto) 0.3 %; Lymphocytes # (auto) 1.05 K/uL (1.2-3.4); Lymphocytes % (auto) 30.9 %; Mean Corpuscular Volume 88.2 fL (80-100); Mean Platelet Volume 11.3 fL (7.4-10.4); Monocytes # (auto) 0.39 K/uL (0.11-0.59); Monocytes % (auto) 11.5 %; Neutrophils # (auto) 1.74 K/uL (1.4-6.5); Neutrophils % (auto) 51.1 %; Platelet Count 181 K/uL (130-400); RDW Coefficient of Variation 13.6 % (11.5-14.5); RDW Standard Deviation 44.1 fL (36.4-46.3); Red Blood Count 4.33 M/uL (4.2-5.4)
[2019-01-04 06:42] LABS: Albumin Level 3.1 gm/dl (3.4-5.0); BUN Creatinine Ratio 6.5 (10-20); Bilirubin Direct 0.1 mg/dl (0-0.2); Bilirubin,Total 0.6 mg/dl (0.2-1); Calcium 8.4 mg/dl (8.5-10.1); Creatinine Clr Calc Pharmacy 95.9 ml/min; Est GFR (African American) 91.9; Est GFR (Non-African American) 79.3; Potassium 3.3 mmol/L (3.5-5.1); Total Protein 6.3 gm/dl (6.4-8.2)
[2019-01-04] MEDS: METOPROLOL SUCC 25MG EXT REL TAB PO SCH ×2 (08:28→20:47)
[2019-01-04] MEDS: AMLODIPINE BESYLATE 5 MG TAB PO SCH (08:28)
[2019-01-04] MEDS: PANTOprazole 40 MG TAB PO SCH ×2 (08:29→20:47)
[2019-01-04] MEDS: SUCRALFATE 1 GM/10 ML UDC PO SCH ×4 (08:29→20:46)
--- NOTE | 2019-01-04 09:26 | Gastrointestinal Consultation ---
Date of Consultation January 04, 2019 Assessment & Plan (1) Epigastric pain: (2) Right upper quadrant abdominal pain: (3) Nausea and vomiting: Diff dx: GERD vs gastritis vs PUD vs gall bladder disease vs other. 1. NPO for now. 2. EGD with Dr. Arias today. 3. Colonoscopy as scheduled for Friday. 4. Additional recommendations pending results of testing. 5. Dr. Machado's office was notified of her inpatient status. Supervising Physician Co-Signing Physician Notes Agree with DAAN Vásquez as above Abd: Soft, Tender RUQ, ND, +BS Continue current therapy Proceed with EGD today History of Present Illness Reason for Consultation: Epigastric pain Requesting Physician: Dr. Bustos Attending Physician: Steph Davison MD History of Present Illness Patient is a 48 year-old female with a history of cholelithiasis, epigastric pain and diarrhea which has been ongoing chronically for the past 7 months. She was evaluated by Nancy Vázquez PA-C one month ago and was ordered both an EGD and colonoscopy as well as general surgery evaluation. She is scheduled for endoscopic procedures on Friday and was to see Dr. Self today, however, she presented to the ER yesterday due to intolerance of PO intake. States she attempted to eat a Pop Tart yesterday morning to take her morning medications and afterward had developed worsened abdominal pain as well as nausea. States she did have 4 episodes of vomiting prior to arrival. Since admission, however, she has not had any further emesis and is tolerating clear liquids although she states she did not consume her liquid breakfast with the exception of a small amount of Chinese ice. No fevers or chills. No diarrhea since admission. Laboratory testing on arrival includes a white blood cell count of 3.4, hemoglobin 12.6, hematocrit 38.2%, platelets 181, sodium 146, potassium 3.3, BUN 6, creatinine 0.86, AST 43, ALT 75, TB 0.6, and ALP 54. She did have an inpatient biliary ultrasound which demonstrated cholelithiasis without evidence of acute cholecystitis. Patient is currently taking Pantoprazole 40 mg BID and Carafate 1 g QID. Currently, she rates her pain as 4/10 in the epigastric region with radiation to the RUQ. Symptoms are worse with eating and not alleviated by PPI or Carafate. Allergies Allergy/AdvReac Type Severity Reaction Status Date / Time prednisone Allergy Intermediate BLOTCHES Verified 01/03/19 13:25 ALL OVER SKIN Home Medications Home Medications Medication Instructions Recorded Confirmed Type amlodipine [Norvasc] 5 mg PO QAM 12/22/18 01/03/19 History metoprolol succinate 25 mg PO BID 12/22/18 01/03/19 History Patient History Medical History DVT prophylaxis Epigastric pain (Acute) Transaminitis (Acute) IBS (irritable bowel syndrome) (Chronic) Syncope (Acute) Hypertension (Chronic) Neck pain (Acute) Gallbladder attack GERD (gastroesophageal reflux disease) Hypertension IBS (irritable bowel syndrome) Surgical History History of bilateral tubal ligation History of colonoscopy History of total hysterectomy with bilateral salpingo-oophorectomy (BSO) History of wisdom tooth extraction Family History Mother Family history of diabetes mellitus Aunt Family history of diabetes mellitus Family hx colonic polyps Sister Family history of diabetes mellitus Other Hypertension No family history of adverse response to anesthesia Social History Preferred Language: Occitan Communication Ability: Effective Beliefs That Will Affect Care: None marital status: Current Living Situation: Alone current occupational status: employed Other Information That Helps Us Care for You: No Feels Safe at Home: Yes Safety Concerns: Feels Safe At This Time Smoking Status: Never smoker Second Hand Exposure: Yes (carpool second hand smoke) Hx Alcohol Use: No Hx Substance Use: No Review of Systems Review of Systems: All systems reviewed & are unremarkable except as noted in HPI & below Physical Exam Constitutional: WD/WN, vitals as above Eyes: EOM intact bilaterally Neck: normal appearance Respiratory: normal respiratory effort, lungs clear to auscultation Cardiovascular: Rate/Rhythm: regular rate and regular rhythm Heart Sounds: no murmur Gastrointestinal (Abdomen): Inspection/Auscultation: normal bowel sounds Percussion/Palpation: + abdomen tender (epigastric and RUQ) and abdomen soft Musculoskeletal: no pedal edema Skin: no rashes, warm and dry Psychiatric: A+Ox3, euthymic affect Results & Data Vital Signs (Past 12 Hours) Vital Signs Temp Pulse Pulse Resp BP Pulse Ox 01/04/19 07:35 36.5 C 58 L 20 120/62 96 01/03/19 23:20 36.6 C 71 16 113/73 95 Laboratory Results Abnormal lab results 01/03/19 01/03/19 01/03/19 Range/Units 13:04 13:04 15:00 WBC (4.8-10.8) K/uL MPV 11.2 H (7.4-10.4) fL Neut # (Auto) 7.86 H (1.4-6.5) K/uL Lymph # (Auto) 0.68 L (1.2-3.4) K/uL [place] # (Auto) 0.64 H (0.11-0.59) K/uL Sodium (136-145) mmol/L Potassium (3.5-5.1) mmol/L Chloride 108 H (98-107) mmol/L BUN (7-18) mg/dl BUN/Creatinine Ratio (10-20) Glucose 102 H (70-99) mg/dl Calcium (8.5-10.1) mg/dl AST 140 H (15-37) U/L ALT 113 H (12-78) U/L Total Protein (6.4-8.2) gm/dl Albumin (3.4-5.0) gm/dl Ur Leukocyte Esterase Trace H (Negative) U Epithel Cells (Auto) 10-20 H (0-5) /lpf 01/04/19 01/04/19 Range/Units 05:40 05:40 WBC 3.40 L D (4.8-10.8) K/uL MPV 11.3 H (7.4-10.4) fL Neut # (Auto) (1.4-6.5) K/uL Lymph # (Auto) 1.05 L (1.2-3.4) K/uL [place] # (Auto) (0.11-0.59) K/uL Sodium 146 H (136-145) mmol/L Potassium 3.3 L (3.5-5.1) mmol/L Chloride 112 H (98-107) mmol/L BUN 6 L D (7-18) mg/dl BUN/Creatinine Ratio 6.5 L (10-20) Glucose (70-99) mg/dl Calcium 8.4 L (8.5-10.1) mg/dl AST 43 H (15-37) U/L ALT (12-78) U/L Total Protein 6.3 L D (6.4-8.2) gm/dl Albumin 3.1 L (3.4-5.0) gm/dl Ur Leukocyte Esterase (Negative) U Epithel Cells (Auto) (0-5) /lpf
[2019-01-04] MEDS: POTASSIUM CHLORIDE 40 MEQ in LACTATED RINGER'S 1,000 ML IV SCH (09:32)
[2019-01-04] MEDS ORDERED: ATROPINE SULFATE 0.1 MG/ML 10ML SYR IV PRN (11:21)
[2019-01-04] MEDS ORDERED: ePHEDrine sulfate 50 MG/ML AMP IV PRN (11:21)
--- NOTE | 2019-01-04 11:21 | Anesthesiology Consultation ---
Date of Service January 04, 2019 Assessment & Plan Chart Review Chart Review: Acceptable Risk for Surgery and Patient NOT seen in Pre Admission Testing Consults Requested none ASA ASA3 Proposed Anesthesia Anesthesia Type: MAC Risk / Benefits Reviewed With: PT / POA / Parent / Guardian, Accepts Plan and Informed Consent Obtained History Surgery Operation Date: 01/04/19 09:00 Proposed Procedures p Esophagogastroduodenoscopy Dr Arias - Gurinder Arias, DO Height/Weight Height: 5 ft 3 in Weight: 113.3 kg Allergies Allergy/AdvReac Type Severity Reaction Status Date / Time prednisone Allergy Intermediate BLOTCHES Verified 01/03/19 13:25 ALL OVER SKIN Medications Home Medications Medication Instructions Recorded Confirmed Last Taken amlodipine [Norvasc] 5 mg PO QAM 12/22/18 01/03/19 Unknown metoprolol succinate 25 mg PO BID 12/22/18 01/03/19 Unknown Active Medications Generic Name Dose Route Start Last Admin Trade Name Freq PRN Reason Stop Dose Admin Amlodipine Besylate 5 mg 01/04/19 09:00 01/04/19 08:28 Norvasc PO 02/03/19 08:59 5 mg QAM AL Administration Enoxaparin Sodium 40 mg 01/03/19 21:00 01/03/19 20:21 Lovenox SQ 02/02/19 20:59 40 mg Q24H AL Administration Potassium Chloride 40 meq/ 1,020 mls @ 80 mls/hr 01/04/19 09:15 01/04/19 09:32 Lactated Ringer's IV 02/03/19 09:14 80 mls/hr .[id number] AL Administration Metoprolol Succinate 25 mg 01/03/19 21:00 01/04/19 08:28 Toprol Xl PO 02/02/19 20:59 25 mg BID AL Administration Pantoprazole Sodium 40 mg 01/03/19 21:00 01/04/19 08:29 Protonix PO 02/02/19 20:59 40 mg BID AL Administration Sucralfate 1 gm 01/03/19 17:00 01/04/19 08:29 Carafate PO 02/02/19 16:59 1 gm QID AL Administration NPO Date Last Intake of Fluids: 01/04/19 Time Last Intake of Fluids: 08:15 Date Last Intake of Solids: 01/03/19 Time Last Intake of Solids: 08:00 Past Medical History Medical History DVT prophylaxis Epigastric pain (Acute) Transaminitis (Acute) IBS (irritable bowel syndrome) (Chronic) Syncope (Acute) Hypertension (Chronic) Neck pain (Acute) Gallbladder attack GERD (gastroesophageal reflux disease) Hypertension IBS (irritable bowel syndrome) Exercise / Class Metabolic Activity II 4-5 Yardwork/Stairs/Walk up hill Past Family History Family History Mother Family history of diabetes mellitus Aunt Family history of diabetes mellitus Family hx colonic polyps Sister Family history of diabetes mellitus Other Hypertension No family history of adverse response to anesthesia Past Surgical History Surgical History History of bilateral tubal ligation History of colonoscopy History of total hysterectomy with bilateral salpingo-oophorectomy (BSO) History of wisdom tooth extraction Past Anesthesia History No Hx of Anesthesia Complications and No Family Hx of Anesthesia Complications History of PONV No Hx of PONV and No Hx of Motion Sickness Social History Smoking Status: Never smoker Hx Alcohol Use: No Hx Substance Use: No substance use type: does not use Physical Exam Vital Signs Last Vital Signs Temp 36.7 C 01/04/19 11:06 Pulse 57 L 01/04/19 11:06 Resp 18 01/04/19 11:06 BP 165/94 H 01/04/19 11:06 Pulse Ox 98 01/04/19 11:06 Constitutional + morbidly obese ENMT Mouth: no dentition abnormality Thyromental Distance: < 3.5 Finger Breadths Mallampati Class: III Neck normal visual inspection and trachea midline; neck extension not limited Respiratory normal respiratory effort Auscultation: lungs clear to auscultation bilaterally Cardiovascular Rate/Rhythm: regular rate and regular rhythm Heart Sounds: no murmur Vessels: no carotid bruit Musculoskeletal Spine: normal cervical ROM Neurologic moves all extremities Motor/Sensory: no sensory deficit Psychiatric Orientation: alert and oriented x 3 Testing Laboratory Results 01/04/19 05:40 01/04/19 05:40 01/03/19 01/03/19 13:11 15:00 PT 10.2 INR 1.0 APTT 24.0 Urine Color Yellow Urine Appearance Clear Urine pH 7.0 Ur Specific [place] 1.009 Urine Protein Negative Urine Glucose (UA) Negative Urine Ketones Negative Urine Nitrite Negative Ur Leukocyte Esterase Trace H Urine WBC (Auto) 0 Urine RBC (Auto) 0-4 U Hyaline Cast (Auto) 0 U Epithel Cells (Auto) 10-20 H Urine Bacteria (Auto) Negative
[2019-01-04] MEDS ORDERED: LIDOCAINE HCL 2% 2 ML VIAL/AMP(20MG/ML) INFIL ONE (12:17)
[2019-01-04] MEDS ORDERED: PROPOFOL IV EMULSION 10 MG/ML 20 ML VIAL IV ONE (12:17)
--- NOTE | 2019-01-04 12:28 | GI REPORT ---
Patient Name: Claire Wade Procedure Date: 01/04/2019 12:01 PM Date of : 1970 Admit Type: Inpatient Age: 48 Gender: Female Attending MD: Gurinder Arias DO Procedure: Upper GI endoscopy Providers: Gurinder Arias DO Referring MD: Steph Davison Md Indications: Epigastric abdominal pain Medicines: Monitored Anesthesia Care Complications: No immediate complications. Estimated Blood Loss: Estimated blood loss: none. Procedure: Pre-Anesthesia Assessment: - Prior to the procedure, a History and Physical was performed, and patient medications and allergies were reviewed. The patient's tolerance of previous anesthesia was also reviewed. The risks and benefits of the procedure and the sedation options and risks were discussed with the patient. All questions were answered, and informed consent was obtained. Prior Anticoagulants: The patient has taken no previous anticoagulant or antiplatelet agents. ASA Grade Assessment: III - A patient with severe systemic disease. After reviewing the risks and benefits, the patient was deemed in satisfactory condition to undergo the procedure. After obtaining informed consent, the endoscope was passed under direct vision. Throughout the procedure, the patient's blood pressure, pulse, and oxygen saturations were monitored continuously. The Endoscope was introduced through the mouth, and advanced to the second part of duodenum. The upper GI endoscopy was accomplished without difficulty. The patient tolerated the procedure well. Findings: The examined esophagus was normal. A small hiatal hernia was present. Localized mild inflammation characterized by erosions and erythema was found in the gastric antrum. Biopsies were taken with a cold forceps for histology. The examined duodenum was normal. Impression: - Normal esophagus. - Small hiatal hernia. - Gastritis. Biopsied. - Normal examined duodenum. Recommendation: - Resume previous diet. - Continue present medications. - Await pathology results. - Return to primary care physician as previously scheduled. Gurinder Arias DO 01/04/2019 12:21:44 PM This report has been signed electronically. Note Initiated On: 01/04/2019 12:01 PM Number of Addenda: 0 I attest to the content of the Intraoperative Record and orders documented therein, exceptions below {[id number]}
--- NOTE | 2019-01-04 12:39 | Anesthesiology Progress Note ---
Date of Service January 04, 2019 Anesthesia Post Procedure Vital Signs Vital Signs: Temp Pulse Pulse Pulse Resp BP BP 01/04/19 12:32 62 16 144/91 H 01/04/19 12:17 36.6 C 71 16 161/84 H 01/04/19 11:06 36.7 C 57 L 18 165/94 H 01/04/19 07:35 36.5 C 58 L 20 120/62 01/03/19 23:20 36.6 C 71 16 113/73 01/03/19 17:06 127/85 01/03/19 16:39 36.4 C L 73 19 175/104 H 01/03/19 15:01 62 20 157/96 H 01/03/19 12:39 36.6 C 65 17 142/79 H Pulse Ox 01/04/19 12:32 96 01/04/19 12:17 96 01/04/19 11:06 98 01/04/19 07:35 96 01/03/19 23:20 95 01/03/19 17:06 01/03/19 16:39 96 01/03/19 15:01 99 01/03/19 12:39 99 Pain Intensity Upper Medial Abdomen: Pain Intensity: 3 Transfer of Care Handoff Completed per policy Notes Mental Status: alert / awake / arousable Patient Amnestic to Procedure: Yes Nausea / Vomiting: adequately controlled Pain: adequately controlled Airway Patency, RR, SpO2: stable & adequate BP & HR: stable & adequate Hydration State: stable & adequate Anesthetic Complications: no major complications apparent
--- NOTE | 2019-01-04 17:19 | Hospitalist Progress Note ---
Date of Service January 04, 2019 Assessment & Plan (1) Epigastric pain: - May be related to gastritis vs. CBD obstruction vs. other. - RUQ US showed cholelithiasis without cholecystitis. - EGD showed gastritis, otherwise was negative. - MRCP is pending completion; may require ERCP pending results. - PPI BID; will add Carafate 1 gm QID dosing. - Advance to [facility] following EGD; may need to be NPO after midnight pending general surgery recs. (2) Cholelithiasis: - Had outpatient appt scheduled with surgery. - General surgery consulted as inpt -- may require lap william. - Further work up as noted above -- MRCP ordered. (3) Transaminitis: - AST elevated, now trending down. - Monitor qAM. (4) Hypertension: - Continue beta arpita and Amlodipine as prescribed. (5) Dehydration: - Based on morning labs. - Started LR at 80 cc/hr. - Monitor labs qAM. (6) Electrolyte abnormality: - K level 3.3 -- added KCl 40 mEq IV to IV fluids. (7) DVT prophylaxis: - Holding for procedures. Dispo: Med/surg for evaluation of abd pain; Gen surg consult pending, may require lap william as inpt. Does not need to remain inpt for colonoscopy on Friday. Supervising Physician Co-Signing Physician Notes PA Supervision Note: I did not personally see or examine the patient today, but I verified all vance points of JOSÉ Elizabeth's assessment and plan with the following exceptions/additions: None Subjective Pt. has ongoing epigastric and RUQ pain following EGD. She complains of nausea, denies vomiting. Had a loose BM prior to EGD. GI and surgery following. Review of Systems Review of Systems: All systems reviewed & are unremarkable except as noted in HPI & below Constitutional: no fever, no chills, no fatigue and no weakness Respiratory: no cough, no dyspnea, no dyspnea on exertion and no wheezing Cardiovascular: no chest pain, no palpitations and no edema Gastrointestinal: + abdominal pain, + nausea and + diarrhea/loose stools; no vomiting and no constipation Genitourinary: no difficulty urinating Musculoskeletal: no back pain and no joint pain Integumentary: no non-healing lesions Allergy / Immunological: no rash Physical Exam Physical Exam: General: Resting comfortably in no apparent distress HEENT: NC/AT; PERRLA with EOMI; [place] conjunctiva, MMM. No erythema of posterior pharynx Neck: Supple and nontender Cardiac: RRR w/o murmurs, gallops or rubs Lungs: CTA bilaterally; No rhonchi, wheezing, or rales Abdomen: Bowel normoactive X 4; Tender to light palpation over epigastric and RUQ region. Extremities: Warm. No edema present Neuro: No focal weakness Skin: No rash Results & Data Vital Signs (Past 12 Hours) Vital Signs Temp Pulse Pulse Resp BP Pulse Ox 01/04/19 15:06 36.7 C 65 20 138/82 95 01/04/19 13:32 36.5 C 70 70 H 152/92 H 95 01/04/19 12:46 56 L 16 146/81 H 99 01/04/19 12:32 62 16 144/91 H 96 01/04/19 12:17 36.6 C 71 16 161/84 H 96 01/04/19 11:06 36.7 C 57 L 18 165/94 H 98 01/04/19 07:35 36.5 C 58 L 20 120/62 96 Laboratory Results 01/04/19 01/04/19 01/03/19 Range/Units 05:40 05:40 13:11 WBC 3.40 L D (4.8-10.8) K/uL RBC 4.33 (4.2-5.4) M/uL Hgb 12.6 (12.0-16.0) g/dL Hct 38.2 (37-47) % MCV 88.2 (80-100) fL MCH 29.1 (25-34) pg MCHC 33.0 (32-36) g/dL RDW Std Deviation 44.1 (36.4-46.3) fL RDW Coeff of [place] 13.6 (11.5-14.5) % Plt Count 181 (130-400) K/uL MPV 11.3 H (7.4-10.4) fL Immature Gran % (Auto) 0.3 % Neut % (Auto) 51.1 % Lymph % (Auto) 30.9 % [place] % (Auto) 11.5 % Eos % (Auto) 5.3 % Baso % (Auto) 0.9 % Immature Gran # (Auto) 0.01 (0.00-0.02) K/uL Neut # (Auto) 1.74 (1.4-6.5) K/uL Lymph # (Auto) 1.05 L (1.2-3.4) K/uL [place] # (Auto) 0.39 (0.11-0.59) K/uL Eos # (Auto) 0.18 (0-0.5) K/uL Baso # (Auto) 0.03 (0-0.2) K/uL PT 10.2 (9.0-12.0) Seconds INR 1.0 (0.9-1.1) APTT 24.0 (21.0-31.0) Seconds PTT Ratio 0.9 Sodium 146 H (136-145) mmol/L Potassium 3.3 L (3.5-5.1) mmol/L Chloride 112 H (98-107) mmol/L Carbon Dioxide 26 (21-32) mmol/L Anion Gap 8.0 (3-11) BUN 6 L D (7-18) mg/dl Creatinine 0.86 (0.6-1.2) mg/dl Est Cr Clr Drug Dosing 95.9 ml/min Est GFR ( Amer) 91.9 Est GFR (Non-Af Amer) 79.3 BUN/Creatinine Ratio 6.5 L (10-20) Glucose 84 (70-99) mg/dl Calcium 8.4 L (8.5-10.1) mg/dl Total Bilirubin 0.6 (0.2-1) mg/dl Direct Bilirubin 0.1 (0-0.2) mg/dl AST 43 H (15-37) U/L ALT 75 (12-78) U/L Alkaline Phosphatase 54 (45-117) U/L Total Protein 6.3 L D (6.4-8.2) gm/dl Albumin 3.1 L (3.4-5.0) gm/dl (1) Cholelithiasis Biliary obstruction: without biliary obstruction Cholelithiasis location: other site Qualified Code(s): K80.80 - Other cholelithiasis without obstruction
--- NOTE | 2019-01-04 17:41 | Magnetic Resonance Report ---
MR MRCP HISTORY: Right upper quadrant pain. Eval for obstruction TECHNIQUE: MRCP of the abdomen was performed without intravenous contrast according to standard [facility] protocol. COMPARISON STUDY: Abdominal ultrasound 09/22. FINDINGS: The lung bases are clear. The liver, spleen, adrenal glands, pancreas, and kidneys are unre markable. No hydronephrosis. No retroperitoneal lymphadenopathy. Normal caliber abdominal aorta. Ther e are multiple gallstones identified. The largest gallstone measures 2 cm. No gallbladder wall thicke izzy. The common bile duct and main pancreatic duct are normal and course and caliber. No filling def ects within the common bile duct to suggest a stone. No intrahepatic bile duct dilatation. The common bile duct measures 5 mm in diameter. IMPRESSION: 1. Cholelithiasis. No gallbladder wall thickening. 2. Normal caliber common bile duct. No stones identified within the common bile duct. Electronically signed by: Abdirashid Munoz M.D. 01/04/2019 5:40 PM
--- NOTE | 2019-01-04 19:20 | Surgery Consultation ---
Date of Consultation January 04, 2019 Assessment & Plan (1) Cholelithiasis: Patient is a 48 uyo female with a 7 month history of abdominal pain with acute worsening of symptoms. Workup is consistent with possible symptomatic cholelithiasis, no definitive evidence of acute cholecystitis though she did have an increase in AST and ALT yesterday, which has almost normalized today. She underwent an EGD with GI today, which showed gastritis and a small hiatal hernia. Biopsy results are pending. Discussed at length with the patient cholelithiasis and potential for cholelithiasis to be asymptomatic in the majority of patients, and the possible etiologies of her abdominal pain being gastritis alone vs cholelithiasis. Discussed recommendation to allow treatment of gastritis to see if symptoms resolve, though may ultimately require cholecystectomy. Also discussed potential to proceed with cholecystectomy at this time, which pt desires. Also discussed the possibility of symptoms to resolve without surgery and the possible surgical complications and time off of work (pt does heavy lifting of several hundred pounds). - Will discuss EGD findings with GI tomorrow and favor elective cholecystectomy if symptoms do not resolve with treatment of gastritis. However, will discuss again with the patient in the morning after discussion with GI prior to final decision - NPO after midnight in case of surgery History of Present Illness Reason for Consultation: Cholelithiasis Attending Physician: Steph Davison MD History of Present Illness The patient is a 48 yo female who has been experiencing epigastric pain for approximately the last 7 months. She describes the pain as constant, lasting through the majority of the day. However, she has "attacks" where pain is worse, and usually last 1-1.5 hours. Both types of pain are associated with nausea. Recently pain has become worse and she had two attacks lasting 4-6 hours. Yesterday she also vomited. Pain is unrelated to food. She has chronic diarrhea for the past 20-30 years secondary to IBS, which is unchanged. She was scheduled to see Dr. Self with General Surgery today and was also scheduled for an EGD and colonoscopy, but presented to the ED with worsening pain. She has been on Prilosec for the past 1-2 weeks. No prior history of esophagitis, gastri tis, or EGDs. Allergies Allergy/AdvReac Type Severity Reaction Status Date / Time prednisone Allergy Intermediate BLOTCHES Verified 01/03/19 13:25 ALL OVER SKIN Home Medications Home Medications Medication Instructions Recorded Confirmed Type amlodipine [Norvasc] 5 mg PO QAM 12/22/18 01/03/19 History metoprolol succinate 25 mg PO BID 12/22/18 01/03/19 History Patient History Medical History DVT prophylaxis Epigastric pain (Acute) Transaminitis (Acute) IBS (irritable bowel syndrome) (Chronic) Syncope (Acute) Hypertension (Chronic) Neck pain (Acute) Gallbladder attack GERD (gastroesophageal reflux disease) Hypertension IBS (irritable bowel syndrome) Surgical History History of bilateral tubal ligation History of colonoscopy History of total hysterectomy with bilateral salpingo-oophorectomy (BSO) History of wisdom tooth extraction Family History Mother Family history of diabetes mellitus Aunt Family history of diabetes mellitus Family hx colonic polyps Sister Family history of diabetes mellitus Other Hypertension No family history of adverse response to anesthesia Social History Preferred Language: Afghan Communication Ability: Effective Beliefs That Will Affect Care: None marital status: Current Living Situation: Alone current occupational status: employed Other Information That Helps Us Care for You: No Feels Safe at Home: Yes Safety Concerns: Feels Safe At This Time Smoking Status: Never smoker Second Hand Exposure: Yes (carpool second hand smoke) Hx Alcohol Use: No Hx Substance Use: No Review of Systems Constitutional: no fever, no chills and no sweats Respiratory: no cough and no dyspnea Cardiovascular: no chest pain Gastrointestinal: See HPI Physical Exam Constitutional: well developed and well nourished; no acute distress Eyes: PERRL, conjunctivae normal, anicteric sclerae ENMT: external ear and nose normal, oropharynx normal Neck: normal visual inspection Respiratory: normal respiratory effort Cardiovascular: Rate/Rhythm: regular rate Gastrointestinal (Abdomen): soft, nondistended, mild epigastric tenderness Musculoskeletal: No edema Skin: no rashes, warm and dry Neurologic: Alert Results & Data Vital Signs (Past 12 Hours) Vital Signs Temp Pulse Pulse Resp BP Pulse Ox 01/04/19 15:06 36.7 C 65 20 138/82 95 01/04/19 13:32 36.5 C 70 70 H 152/92 H 95 01/04/19 12:46 56 L 16 146/81 H 99 01/04/19 12:32 62 16 144/91 H 96 01/04/19 12:17 36.6 C 71 16 161/84 H 96 01/04/19 11:06 36.7 C 57 L 18 165/94 H 98 01/04/19 07:35 36.5 C 58 L 20 120/62 96 Laboratory Results Laboratory Tests 01/03/19 01/04/19 13:04 05:40 WBC 9.29 3.40 L D Hgb 14.4 12.6 Hct 43.7 38.2 Plt Count 220 181 Laboratory Tests 01/03/19 01/04/19 13:04 05:40 Sodium 143 146 H Potassium 3.5 3.3 L Chloride 108 H 112 H Carbon Dioxide 27 26 Anion Gap 8.0 8.0 BUN 11 6 L D Creatinine 0.95 0.86 Glucose 102 H 84 Calcium 9.2 8.4 L Total Protein 7.9 6.3 L D Albumin 4.1 3.1 L Globulin 3.8 Albumin/Globulin Ratio 1.1 Laboratory Tests 01/03/19 01/04/19 13:04 05:40 Total Bilirubin 0.8 0.6 Direct Bilirubin 0.1 AST 140 H 43 H ALT 113 H 75 Alkaline Phosphatase 72 54 Lipase 154 Diagnostic Findings (12/08/18) U/S RUQ: US abdomen limited HISTORY: Pain. Nausea. Abdominal pain, chronic, epigastric. COMPARISON: None. FINDINGS: Pancreas: The pancreas demonstrates a normal echotexture. Liver: Fatty infiltration Gallbladder: Combination of gallstones and sludge within the gallbladder lumen. CBD: 4 mm Right kidney: No hydronephrosis. IMPRESSION: 1. Combination of gallstones and sludge within the gallbladder. 2. Normal bile ducts. 3. Fatty replacement of liver. (01/04/19) U/S RUQ: ULTRASOUND RIGHT UPPER QUADRANT ABDOMEN CLINICAL HISTORY: Right upper quadrant abdominal pain. COMPARISON STUDY: Abdominal ultrasound dated 12/08/2018. TECHNIQUE: Real-time, grayscale, and color flow sonography of the right upper quadrant of the abdomen was performed. Images are reviewed in the transverse and longitudinal planes. FINDINGS: Liver: The liver is normal in size and demonstrates heterogeneously echotexture consistent with hepatic steatosis. Fatty sparing is seen adjacent to gallbladder fossa. There is no intrahepatic biliary ductal dilatation. The main portal vein is patent. Gallbladder: There are large calcified gallstones which measure up to at least 1.7 cm. The gallbladder is otherwise normal in appearance. There is no gallbladder wall thickening or pericholecystic fluid. A sonographic Rolle's sign is reportedly absent. The common bile duct measures up to 0.5 cm in diameter. Pancreas: Visualized portions of the pancreatic head and body are normal in appearance. The splenic vein is patent. Right kidney: Survey images of the right kidney demonstrate normal size and echotexture. There is no hydronephrosis. Ascites: None. IMPRESSION: 1. Cholelithiasis without sonographic evidence of acute cholecystitis. 2. Hepatic steatosis. (1) Cholelithiasis Biliary obstruction: without biliary obstruction Cholelithiasis location: other site Qualified Code(s): K80.80 - Other cholelithiasis without obstruction
[2019-01-05] MEDS: POTASSIUM CHLORIDE 40 MEQ in LACTATED RINGER'S 1,000 ML IV SCH (05:00)
[2019-01-05 07:26] LABS: Basophils # (auto) 0.03 K/uL (0-0.2); Basophils % (auto) 0.9 %; Eosinophils # (auto) 0.23 K/uL (0-0.5); Eosinophils % (auto) 6.6 %; Hemoglobin 13.5 g/dL (12.0-16.0); Immature Granulocytes # (auto) 0.01 K/uL (0.00-0.02); Immature Granulocytes % (auto) 0.3 %; Lymphocytes # (auto) 0.92 K/uL (1.2-3.4); Lymphocytes % (auto) 26.4 %; Mean Corpuscular Hgb Conc 32.9 g/dL (32-36); Mean Corpuscular Volume 87.4 fL (80-100); Mean Platelet Volume 11.4 fL (7.4-10.4); Monocytes # (auto) 0.33 K/uL (0.11-0.59); Monocytes % (auto) 9.5 %; Neutrophils # (auto) 1.96 K/uL (1.4-6.5); Neutrophils % (auto) 56.3 %; Platelet Count 207 K/uL (130-400); RDW Coefficient of Variation 13.4 % (11.5-14.5); RDW Standard Deviation 42.9 fL (36.4-46.3); Red Blood Count 4.69 M/uL (4.2-5.4); White Blood Count 3.48 K/uL (4.8-10.8)
[2019-01-05 07:52] LABS: Alanine Aminotransferase 62 U/L (12-78); Albumin Level 3.5 gm/dl (3.4-5.0); Aspartate Aminotransferase 27 U/L (15-37); BUN Creatinine Ratio 6.4 (10-20); Blood Urea Nitrogen 5 mg/dl (7-18); Carbon Dioxide 25 mmol/L (21-32); Chloride 111 mmol/L (98-107); Creatinine Clr Calc Pharmacy 103.1 ml/min; Est GFR (African American) 100.3; Est GFR (Non-African American) 86.6; Glucose 84 mg/dl (70-99); Potassium 3.9 mmol/L (3.5-5.1); Sodium 142 mmol/L (136-145)
[2019-01-05 07:55] LABS: Alkaline Phosphatase 56 U/L (45-117); Bilirubin Direct < 0.1 mg/dl (0-0.2); Bilirubin,Total 0.5 mg/dl (0.2-1); Total Protein 6.8 gm/dl (6.4-8.2)
[2019-01-05] MEDS ORDERED: cefOXitin 2,000 MG in DEXTROSE 5% 50 ML IV STA (08:15)
--- NOTE | 2019-01-05 08:15 | Surgery Progress Note ---
Date of Service January 05, 2019 Assessment & Plan (1) Cholelithiasis: Patient is a 48 uyo female with a 7 month history of abdominal pain with acute worsening of symptoms. Workup is consistent with possible symptomatic cholelithiasis, no definitive evidence of acute cholecystitis though she did have an increase in AST and ALT yesterday, which has almost normalized. She underwent an EGD with GI , which showed gastritis and a small hiatal hernia. Biopsy results are pending. Discussed at length with the patient cholelithiasis and potential for cholelithiasis to be asymptomatic in the majority of patients, and the possible etiologies of her abdominal pain being gastritis alone vs cholelithiasis. Discussed EGD findings with GI, who stated gastritis was mild. Given these findings and elevation of LFTs, gallbladder is more likely the cause of her prior symptoms. Discussed observation vs surgical intervention as well as risks and benefits of each and the patient as decided to proceed with surgery. - OR today for laparoscopic, possible open, cholecystectomy, possible intra- operative cholangiogram. Consent obtained (see below). - NPO, IVF - Cefoxitin supervisor of operations - SCDs - Farhad-operative expectations were discussed with the patient including: - Weight restriction of lifting/pushing/pulling 10 pounds x 4 weeks post-op. Her job does require lifting of very heavy objects. She will have paperwork for work, which she can have faxed to the surgery office. - Expected pain and plan for pain control farhad-operatively. Recommend Tylenol around the clock x 2-3 days post-operatively, normally would also recommend scheduled Ibuprofen but given her gastritis this should be avoided. She can appl y ice over a towel to the incision. Oxycodone can be used as needed for pain not relieved by the above - Okay to shower, allowing soap and water to run over the incisions, but do not soak in standing bodies of water (bath, pool, lakes, etc) x 2 weeks post-op - The incisions should be protected from sun, and if Dermabond is used, should not be exposed to direct sunlight while in placed - Risks, benefits, and alternatives were discussed. Alternatives include observation, with potential outcomes of no recurrent pain, recurrent pain, cholecystitis, choledocholithiasis, and pancreatitis. Risks associated with surgery include but are not limited to pain, scarring, bleeding, infection, hernia, bile leak, injury to bile ducts and other surrounding structures, retained stones, diarrhea, failure for symptoms to resolve, need for additional procedures, heart problems, breathing problems, blood clots, stroke, and . All questions were answered to apparent satisfaction and the patient freely signed consent. Subjective Patient states pain has greatly improved. Denies nausea. Has been NPO. Discussed EGD findings with GI. Physical Exam Constitutional: well developed and well nourished; no acute distress Respiratory: normal respiratory effort Cardiovascular: Rate/Rhythm: regular rate Gastrointestinal (Abdomen): soft, nontender, nondistended Results & Data Vital Signs (Past 12 Hours) Vital Signs Temp Pulse Resp BP Pulse Ox 01/05/19 07:14 36.6 C 62 16 145/83 H 95 01/04/19 23:05 36.6 C 67 16 147/81 H 95 (1) Cholelithiasis Biliary obstruction: without biliary obstruction Cholelithiasis location: other site Qualified Code(s): K80.80 - Other cholelithiasis without obstruction
--- NOTE | 2019-01-05 08:54 | Anesthesiology Consultation ---
Date of Service January 05, 2019 Assessment & Plan Chart Review Chart Review: Acceptable Risk for Surgery and Patient NOT seen in Pre Admission Testing Consults Requested none ASA ASA3 Proposed Anesthesia Anesthesia Type: General Risk / Benefits Reviewed With: PT / POA / Parent / Guardian, Accepts Plan and Informed Consent Obtained History Surgery Operation Date: 01/04/19 09:00 Proposed Procedures p Esophagogastroduodenoscopy Dr Arias - Gurinder Arias, DO Operation Date: 01/05/19 08:10 Proposed Procedures p Laparoscopic Cholecystectomy, Possible Open Cholecystectomy, Possible Cholangiogram - Lorri Reinoso MD Height/Weight Height: 1.6 m Weight: 113.3 kg Allergies Allergy/AdvReac Type Severity Reaction Status Date / Time prednisone Allergy Intermediate BLOTCHES Verified 01/03/19 13:25 ALL OVER SKIN Medications Home Medications Medication Instructions Recorded Confirmed Last Taken amlodipine [Norvasc] 5 mg PO QAM 12/22/18 01/03/19 Unknown metoprolol succinate 25 mg PO BID 12/22/18 01/03/19 Unknown Active Medications Generic Name Dose Route Start Last Admin Trade Name Gabrielq PRN Reason Stop Dose Admin Amlodipine Besylate 5 mg 01/04/19 09:00 01/05/19 08:58 Norvasc PO 02/03/19 08:59 5 mg QAM AL Administration Enoxaparin Sodium 40 mg 01/03/19 21:00 01/03/19 20:21 Lovenox SQ 02/02/19 20:59 40 mg Q24H AL Administration Sodium Chloride 1,000 mls @ 100 mls/hr 01/05/19 08:30 01/05/19 08:58 Nss 1000ml IV 02/04/19 08:29 100 mls/hr .Q10H AL Administration Metoprolol Succinate 25 mg 01/03/19 21:00 01/05/19 08:58 Toprol Xl PO 02/02/19 20:59 25 mg BID AL Administration Pantoprazole Sodium 40 mg 01/03/19 21:00 01/05/19 08:58 Protonix PO 02/02/19 20:59 40 mg BID AL Administration Sucralfate 1 gm 01/03/19 17:00 01/05/19 09:00 Carafate PO 02/02/19 16:59 Not Given QID AL NPO Date Last Intake of Fluids: 01/04/19 Time Last Intake of Fluids: 18:00 Date Last Intake of Solids: 01/03/19 Time Last Intake of Solids: 08:00 Past Medical History Medical History DVT prophylaxis Epigastric pain (Acute) Transaminitis (Acute) IBS (irritable bowel syndrome) (Chronic) Syncope (Acute) 2 years ago due to severe elevation in BP prior to taking BP meds Hypertension (Chronic) Neck pain (Acute) Gallbladder attack GERD (gastroesophageal reflux disease) Hypertension IBS (irritable bowel syndrome) Exercise / Class Metabolic Activity II 4-5 Yardwork/Stairs/Walk up hill Past Family History Family History Mother Family history of diabetes mellitus Aunt Family history of diabetes mellitus Family hx colonic polyps Sister Family history of diabetes mellitus Other Hypertension No family history of adverse response to anesthesia Past Surgical History Surgical History History of bilateral tubal ligation History of colonoscopy History of total hysterectomy with bilateral salpingo-oophorectomy (BSO) History of wisdom tooth extraction Past Anesthesia History No Hx of Anesthesia Complications and No Family Hx of Anesthesia Complications History of PONV No Hx of PONV and No Hx of Motion Sickness Social History Smoking Status: Never smoker Do You Dip or Chew Tobacco: No Hx Alcohol Use: No Hx Substance Use: No substance use type: does not use Review of Systems Respiratory: no dyspnea and no sputum production Cardiovascular: no chest pain and no dyspnea on exertion Gastrointestinal: no heartburn, no nausea and no vomiting (None since Friday) Physical Exam Vital Signs Last Vital Signs Temp 36.7 C 01/05/19 10:17 Pulse 65 01/05/19 10:17 Resp 16 01/05/19 10:17 BP 153/98 H 01/05/19 10:17 Pulse Ox 97 01/05/19 10:17 Constitutional + morbidly obese ENMT Mouth: no TMJ abnormality and no TMJ clicking Thyromental Distance: > or= 3.5 Finger Breadths Mallampati Class: II Neck normal visual inspection; neck extension not limited Respiratory Auscultation: lungs clear to auscultation bilaterally Cardiovascular Rate/Rhythm: regular rate and regular rhythm Psychiatric Orientation: alert and oriented x 3 Testing Laboratory Results 01/05/19 07:03 01/05/19 07:03
[2019-01-05] MEDS: METOPROLOL SUCC 25MG EXT REL TAB PO SCH ×2 (08:58→20:20)
[2019-01-05] MEDS: AMLODIPINE BESYLATE 5 MG TAB PO SCH (08:58)
[2019-01-05] MEDS: SODIUM CHLORIDE 0.9% 1000ML 1,000 ML IV SCH ×2 (08:58→16:05)
[2019-01-05] MEDS: PANTOprazole 40 MG TAB PO SCH ×2 (08:58→20:20)
[2019-01-05] MEDS: SUCRALFATE 1 GM/10 ML UDC PO SCH ×4 (09:00→20:20)
[2019-01-05] MEDS ORDERED: PROMETHAZINE HCL 12.5 MG in SODIUM CHLORIDE 0.9% 50 ML IV PRN (10:23)
[2019-01-05] MEDS ORDERED: ONDANSETRON INJ 2 MG/ML 2 ML VIAL IV PRN (10:23)
[2019-01-05] MEDS ORDERED: ePHEDrine sulfate 50 MG/ML AMP IV PRN (10:23)
[2019-01-05] MEDS ORDERED: fentaNYL citrate 100 MCG/2 ML VIAL IV PRN (10:23)
[2019-01-05] MEDS ORDERED: PHENYLEPHRINE 100MCG/ML 5ML SYR IV PRN (10:23)
[2019-01-05] MEDS ORDERED: HYDROmorphone INJ 1 MG/ML SYRINGE IV PRN (10:23)
[2019-01-05] MEDS ORDERED: ATROPINE SULFATE 0.1 MG/ML 10ML SYR IV PRN (10:23)
--- NOTE | 2019-01-05 10:32 | Anesthesiology Progress Note ---
Date of Service January 05, 2019 Anesthesia Post Procedure Vital Signs Vital Signs: Temp Pulse Pulse Resp BP Pulse Ox 01/05/19 10:17 36.7 C 65 16 153/98 H 97 01/05/19 07:14 36.6 C 62 16 145/83 H 95 01/04/19 23:05 36.6 C 67 16 147/81 H 95 01/04/19 15:06 36.7 C 65 20 138/82 95 01/04/19 13:32 36.5 C 70 70 H 152/92 H 95 01/04/19 12:46 56 L 16 146/81 H 99 01/04/19 12:32 62 16 144/91 H 96 01/04/19 12:17 36.6 C 71 16 161/84 H 96 01/04/19 11:06 36.7 C 57 L 18 165/94 H 98 Notes Mental Status: alert / awake / arousable and participated in evaluation Nausea / Vomiting: adequately controlled Pain: adequately controlled Airway Patency, RR, SpO2: stable & adequate BP & HR: stable & adequate Hydration State: stable & adequate
[2019-01-05] MEDS ORDERED: ONDANSETRON INJ 2 MG/ML 2 ML VIAL ONE (11:09)
[2019-01-05] MEDS ORDERED: MIDAZOLAM HCL 1 MG/ML 2ML VIAL ONE (11:09)
[2019-01-05] MEDS ORDERED: LIDOCAINE HCL 2% 2 ML VIAL/AMP(20MG/ML) INFIL ONE (11:09)
[2019-01-05] MEDS ORDERED: GLYCOPYRROLATE 0.2 MG/ML VIAL ONE ×2 (11:09→12:49)
[2019-01-05] MEDS ORDERED: fentaNYL citrate 100 MCG/2 ML VIAL ONE (11:09)
[2019-01-05] MEDS ORDERED: NEOSTIGMINE METHYLSULFATE 5 MG/5 ML SYR ONE (11:09)
[2019-01-05] MEDS ORDERED: PROPOFOL IV EMULSION 10 MG/ML 20 ML VIAL IV ONE (11:09)
[2019-01-05] MEDS ORDERED: DEXAMETHASONE SOD INJ 4 MG/ML VIAL ONE (11:09)
[2019-01-05] MEDS ORDERED: EPINEPHrine INJ 1 MG/ML AMP ONE (11:11)
[2019-01-05] MEDS ORDERED: BUPIVACAINE 0.25% 30 ML VIAL ONE (11:11)
--- NOTE | 2019-01-05 13:20 | Post Operative Brief Note ---
Immediate Post Op Note v1 Date of Surgery January 05, 2019 Pre & Post Diagnosis Operation Date: 01/05/19 08:10 Pre-Op Diagnosis: Cholelithiasis Post-Op Diagnosis: Cholelithiasis, mild acute cholecystitis Procedure Operation Date: 01/05/19 08:10 Actual Procedures p Laparoscopic Cholecystectomy(Not Applicable) - Lorri Reinoso MD Surgeon Lorri Reinoso MD Director Hris Kim Bruce PA-C Estimated Blood Loss 5 Findings Consistent with Post-Op Diagnosis Fluids 1400 mL Crystalloid Specimens Gallbladder to Pathology Anesthesia Type General Complications none
--- NOTE | 2019-01-05 13:21 | Operative Report ---
Post Operative Report Pre & Post Diagnosis Operation Date: 01/05/19 08:10 Pre-Op Diagnosis: Cholelithiasis Post-Op Diagnosis: Cholelithiasis, mild acute cholecystitis Procedure Operation Date: 01/05/19 08:10 Actual Procedures p Laparoscopic Cholecystectomy(Not Applicable) - Lorri Reinoso MD Surgeon Lorri Reinoso MD Track Template Maker Kim Bruce PA-C Estimated Blood Loss 5 Findings See Below Omentum adhered to gallbladder. Gallbladder was distended, very long, and there were significant filmy adhesions. Fluids 1400 ml Crystalloid Specimens Gallbladder to Pathology Anesthesia Type General Complications none Description of Procedure History and Indications: Pt is an 48 year old female who presented with symptomatic cholelithiasis and concerns for mild cholecystitis. A discussion was had with the patient about risks, benefits, and alternatives to surgery. Risks included, but are not limited to, injury to the bile ducts, bile leak, abscess, hernia, retained stone, needing to convert to an open procedure, bleeding, infection, [place], stroke, , and need for prolonged intubation. After discussion, and all questions were answered to apparent satisfaction, the patient freely signed consent to proceed with laparoscopic, possible open, cholecystectomy. Description of Procedure: The patient was taken to the operating room and placed in the supine position. Paulina-operative antibiotics were administered and SCDs were on and working. General anesthesia was induced. A timeout was held confirming the correct patient, procedure, and necessary equipment. An OG tube was placed. The abdomen was prepped and draped in the usual sterile fashion. An incision was made above the umbilicus. The fascia was elevated and incised. The peritoneum was elevated and incised. Entry into the peritoneum was confirmed visually and no bowel was noted in the vicinity of the incision. The Richardson cannula was inserted. The abdomen was insufflated with carbon dioxide. The patient tolerated insufflation well. The laparoscope was inserted and the abdomen inspected. No injuries from initial trocar placement were noted. The patient was placed in reverse Trendelenburg and tilted slightly to the left. Additional trocars were then inserted in the following locations: a 5 mm trocar in the epigastrium and two 5 mm trocars along the right costal margin. Omentum was adhered to gallbladder. Gallbladder was distended, very long, and there were significant filmy adhesions. The dome of the gallbladder was grasped with an atraumatic grasper through the lateral port and retracted over the dome of the liver. The infundibulum was also grasped with an atraumatic grasper and retracted laterally. The peritoneum overlying the gallbladder infundibulum was incised and the cystic duct and cystic artery were identified and circumferentially dissected. The critical view of safety was visualized. The cystic duct and cystic artery as was a small arterial branch wrapping around the anterior aspect of the gallbladder on the staying side were then doubly clipped and singly on the specimen side, then divided with scissors. The gallbladder was then dissected from its peritoneal attachments by electrocautery. Hemostasis was checked. The gallbladder was placed in an endoscopic retrieval bag. The gallbladder fossa was irrigated. Hemostasis was obtained. There was no evidence of bleeding from the gallbladder fossa or cystic duct artery or leakage of the bile from the cystic duct stump. Secondary trocars were removed under direct visualization. No bleeding was noted. The laparsocope and Richardson cannula were withdrawn. The specimen within the endoscopic retrieval bag was removed from the peritoneal cavity and sent to Pathology. A safety pause was held confirming specimens. The fascia of the midline Richardson trocar site was closed with a [id number] 0 vicryl sutures and two interrupted 0 vicryl sutures. The skin was closed with subcuticular sutures of 4-0 Monocryl and Dermabond was applied to the incisions. All counts were reported as correct. The OG tube was removed. The patient was extubated and transferred to the recovery room in stable condition. I attest to the content of the Intraoperative Record and any orders documented therein. Any exceptions are noted below.
[2019-01-05] MEDS ORDERED: NALOXONE HCL 0.4 MG/1 ML VIAL/CARP ONE ×2 (13:29→13:52)
[2019-01-05] MEDS ORDERED: OXYCODONE HCL IR 5 MG TAB (IMMEDIATE RELEASE) PO PRN ×2 (14:47)
--- NOTE | 2019-01-05 15:48 | Hospitalist Progress Note ---
Date of Service January 05, 2019 Assessment & Plan (1) Epigastric pain: - May be related to gastritis vs. cholelithiasis vs. other. - RUQ US showed cholelithiasis without cholecystitis. - EGD showed gastritis, otherwise was negative. - MRCP was negative for obstruction. - PPI BID; added Carafate 1 gm QID. (2) Cholelithiasis: - General surgery consulted, s/p lap cholecystectomy this morning. - Regular diet as tolerated. - Oxycodone 5-10 mg q4hr & Tylenol q4hr prn pain. - Zofran prn N/V. (3) Transaminitis: - AST was elevated, now improved. - Monitor qAM. (4) Hypertension: - Continue beta arpita and Amlodipine as prescribed. (5) Dehydration: - Improved with IV fluid hydration. (6) Electrolyte abnormality: - No replacement required. (7) DVT prophylaxis: - Hold for lap william. Dispo: Med/surg; discharge on 01/06/19 pending pain control following lap william. Supervising Physician Co-Signing Physician Notes PA Supervision Note: I did not personally see or examine the patient today, but I verified all vance points of JOSÉ Elizabeth's assessment and plan with the following exceptions/additions: None Subjective Doing well post op. Review of Systems Review of Systems: All systems reviewed & are unremarkable except as noted in HPI & below Constitutional: no fever, no chills, no fatigue, no weakness and no anorexia Respiratory: no cough, no dyspnea and no dyspnea on exertion Cardiovascular: no chest pain, no palpitations and no edema Gastrointestinal: + abdominal pain; no nausea and no constipation Genitourinary: no difficulty urinating Musculoskeletal: no joint pain Integumentary: no non-healing lesions Physical Exam Physical Exam: General: Resting comfortably in no apparent distress HEENT: NC/AT; PERRLA with EOMI; [place] conjunctiva, MMM. No erythema of posterior pharynx Neck: Supple and nontender Cardiac: RRR w/o murmurs, gallops or rubs Lungs: CTA bilaterally; No rhonchi, wheezing, or rales Abdomen: Bowel normoactive X 4 Extremities: Warm. No edema present Neuro: No focal weakness Skin: No rash Results & Data Vital Signs (Past 12 Hours) Vital Signs Temp Pulse Pulse Resp BP Pulse Ox 01/05/19 15:37 36.6 C 76 17 172/92 H 93 01/05/19 15:02 37.6 C H 73 17 152/85 H 95 01/05/19 14:30 36.4 C L 86 18 156/86 H 93 01/05/19 14:15 36.5 C 78 18 165/89 H 100 01/05/19 14:05 72 18 166/98 H 100 01/05/19 13:55 71 18 169/92 H 100 01/05/19 13:45 68 20 135/96 100 01/05/19 13:39 36.4 C L 71 12 139/85 96 01/05/19 10:17 36.7 C 65 16 153/98 H 97 01/05/19 07:14 36.6 C 62 16 145/83 H 95 Laboratory Results 01/05/19 01/05/19 Range/Units 07:03 07:03 WBC 3.48 L (4.8-10.8) K/uL RBC 4.69 (4.2-5.4) M/uL Hgb 13.5 (12.0-16.0) g/dL Hct 41.0 (37-47) % MCV 87.4 (80-100) fL MCH 28.8 (25-34) pg MCHC 32.9 (32-36) g/dL RDW Std Deviation 42.9 (36.4-46.3) fL RDW Coeff of Luiza 13.4 (11.5-14.5) % Plt Count 207 (130-400) K/uL MPV 11.4 H (7.4-10.4) fL Immature Gran % (Auto) 0.3 % Neut % (Auto) 56.3 % Lymph % (Auto) 26.4 % Turner % (Auto) 9.5 % Eos % (Auto) 6.6 % Baso % (Auto) 0.9 % Immature Gran # (Auto) 0.01 (0.00-0.02) K/uL Neut # (Auto) 1.96 (1.4-6.5) K/uL Lymph # (Auto) 0.92 L (1.2-3.4) K/uL Turner # (Auto) 0.33 (0.11-0.59) K/uL Eos # (Auto) 0.23 (0-0.5) K/uL Baso # (Auto) 0.03 (0-0.2) K/uL Sodium 142 (136-145) mmol/L Potassium 3.9 D (3.5-5.1) mmol/L Chloride 111 H (98-107) mmol/L Carbon Dioxide 25 (21-32) mmol/L Anion Gap 6.0 (3-11) BUN 5 L (7-18) mg/dl Creatinine 0.80 (0.6-1.2) mg/dl Est Cr Clr Drug Dosing 103.1 ml/min Est GFR ( Amer) 100.3 Est GFR (Non-Af Amer) 86.6 BUN/Creatinine Ratio 6.4 L (10-20) Glucose 84 (70-99) mg/dl Calcium 9.0 (8.5-10.1) mg/dl Total Bilirubin 0.5 (0.2-1) mg/dl Direct Bilirubin < 0.1 (0-0.2) mg/dl AST 27 (15-37) U/L ALT 62 (12-78) U/L Alkaline Phosphatase 56 (45-117) U/L Total Protein 6.8 (6.4-8.2) gm/dl Albumin 3.5 (3.4-5.0) gm/dl (1) Cholelithiasis Biliary obstruction: without biliary obstruction Cholelithiasis location: other site Qualified Code(s): K80.80 - Other cholelithiasis without obstruction
[2019-01-05] MEDS: ACETAMINOPHEN 325 MG TAB PO PRN (17:40)
[2019-01-05] MEDS: ENOXAPARIN INJ 40 MG/0.4 ML SYR SQ SCH (21:33)
[2019-01-06 07:26] LABS: Basophils # (auto) 0.03 K/uL (0-0.2); Basophils % (auto) 0.3 %; Eosinophils # (auto) 0.09 K/uL (0-0.5); Hematocrit (blood only) 43.6 % (37-47); Hemoglobin 14.5 g/dL (12.0-16.0); Immature Granulocytes # (auto) 0.02 K/uL (0.00-0.02); Immature Granulocytes % (auto) 0.2 %; Lymphocytes # (auto) 1.01 K/uL (1.2-3.4); Mean Corpuscular Hgb Conc 33.3 g/dL (32-36); Mean Corpuscular Volume 87.2 fL (80-100); Mean Platelet Volume 12.1 fL (7.4-10.4); Monocytes # (auto) 0.78 K/uL (0.11-0.59); Monocytes % (auto) 8.5 %; Neutrophils # (auto) 7.22 K/uL (1.4-6.5); Platelet Count 212 K/uL (130-400); RDW Coefficient of Variation 13.6 % (11.5-14.5); White Blood Count 9.15 K/uL (4.8-10.8)
[2019-01-06 07:54] LABS: BUN Creatinine Ratio 7.9 (10-20); Calcium 9.3 mg/dl (8.5-10.1); Creatinine Clr Calc Pharmacy 75.7 ml/min; Est GFR (Non-African American) 59.6; Magnesium 2.3 mg/dl (1.8-2.4); Potassium 3.6 mmol/L (3.5-5.1)
[2019-01-06] MEDS: METOPROLOL SUCC 25MG EXT REL TAB PO SCH (08:37)
[2019-01-06] MEDS: SUCRALFATE 1 GM/10 ML UDC PO SCH ×2 (08:37→12:29)
[2019-01-06] MEDS: PANTOprazole 40 MG TAB PO SCH (08:38)
[2019-01-06] MEDS: AMLODIPINE BESYLATE 5 MG TAB PO SCH (08:38)
[2019-01-06] MEDS: ACETAMINOPHEN 325 MG TAB PO PRN (12:28)
--- NOTE | 2019-01-06 13:16 | Discharge Summary ---
Date of Service January 06, 2019 Admission HPI Per Admitting Provider 48-year-old obese female with known cholelithiasis. She has recurrent epigastric discomfort and is scheduled to see a general surgeon tomorrow morning. She has outpatient EGD and colonoscopy scheduled later this week with Dr. Arias. She developed epigastric pain with nausea and vomiting early this morning which has persisted. Right upper quadrant ultrasound reveals cholelithiasis with no evidence of acute cholecystitis. She will be placed in observation status with clear liquid diet, IV fluids, Protonix and Carafate therapy. GI service will be consulted. Again, she has an appointment to see her bronc buster for endoscopy later this week. She also has an appointment with a general surgeon tomorrow morning. Hopefully she can go home early tomorrow morning and follow-up with her appointments. Principal Diagnosis Cholelithiasis Discharge Exam Constitutional WD/WN, vitals as above Respiratory normal respiratory effort, lungs clear to auscultation Cardiovascular RRR, no murmur, no edema Gastrointestinal (Abdomen) Inspection/Auscultation: abdomen not distended Percussion/Palpation: abdomen nontender hypoactive bowel sounds Musculoskeletal no cyanosis or clubbing, extremities motor strength 5/5 Skin no rashes, warm and dry Neurologic moves all extremities and awake Psychiatric A+Ox3, euthymic affect Discharge Data Allergies Allergy/AdvReac Type Severity Reaction Status Date / Time prednisone Allergy Intermediate BLOTCHES Verified 01/03/19 13:25 ALL OVER SKIN Consultations 01/03/19 16:36 Consult Gastroenterology Routine 01/04/19 09:02 Consult General Surgery Routine Procedures Performed Operation Date: 01/04/19 09:00 Actual Procedures p EGD Biopsy Cytology - Gurinder Arias, DO Operation Date: 01/05/19 08:10 Actual Procedures p Laparoscopic Cholecystectomy(Not Applicable) - Lorri Reinoso MD Ordered Studies 01/03/19 12:57 US gallbladder Stat 01/04/19 16:19 MR MRCP Urgent Hospital Course (1) Epigastric pain: -Was likely related to gastritis vs. cholelithiasis vs. chronic cholecystitis which proved to be the culprit on pathology after cholecystectomy - RUQ US showed cholelithiasis without cholecystitis. - EGD showed gastritis, otherwise was negative. - MRCP was negative for obstruction. - PPI BID - will send with script for 30 days (2) Cholelithiasis: - General surgery consulted, s/p lap cholecystectomy 01/04 - Regular diet advance as tolerated. - Oxycodone 5-10 mg q4hr & Tylenol q4hr prn pain. - Zofran prn N/V. - per surgery, she is ok to dc with minimal bowel function at this point - no bm yet following surgery, hypoactive bowel sounds. She is tolerating po intake. (3) Transaminitis: - AST was elevated but has trended down to wnl and was likely secondary to symptomatic cholelithiasis (4) Hypertension: - Continue beta arpita and Amlodipine as prescribed. (5) Dehydration: - Improved with IV fluid hydration. (6) Electrolyte abnormality: - No replacement required. (7) DVT prophylaxis: Total Time Total Time Spent Total Time Spent (In Minutes): greater than 30 minutes Total Time Includes: Examination of the Patient, Medication Reconciliation and Communication With Other Providers Discharge Plan Discharge Items Patient Disposition: Home - Self-Care Reason For Visit: EPIGASTRIC PAIN Discharge Diagnosis: Epigastric pain, symptomatic cholelithiasis (gallstones) Discharge Goals: Decrease discomfort and Therapeutic intervention Activity: Resume your previous activity Activity Comment: gradually as tolerated Non-emergency contact: Primary Care Provider and Surgeon Call non-emergency contact if: you have any medication questions, your symptoms worsen, your pain is not controlled, your pain is worsening, you have a fever, your wound has increased redness and your wound has increased drainage Follow-up/Referrals: Betty Mcgregor PA-C [Primary Care Provider] - 01/13/19 1:00 pm (A follow up appointment was made with your PCP, Betty Mcgregor, on FridayJanuary 13 at 1:00pm. The office will be contacting you with some questions if you have any concerns or need to reschedule. ) Diet: Regular Addtl Provider Instructions: Please follow up with your primary care provider within about 1 week. Your co lonoscopy that had been scheduled for Friday will be rescheduled given your recent surgery. SURGICAL DISCHARGE INSTRUCTIONS: No heavy lifting over 10-15 pounds for 3-4 weeks No strenuous activity until cleared by surgeon No submerging incisions underwater for 2 weeks (no bathing, swimming, or hot tubs) NO driving while taking narcotic pain medication or until you are pain free You may shower starting 01/06/2019. Gently allow soap and water to run over incisions and pat dry. Leave surgical glue on incisions. Do NOT pick. It will come off on its own. Walking and light activity is encouraged to prevent blood clots from forming in your legs You will be given prescription for Oxycodone for moderate to severe pain. Take as directed. Take Tylenol (650 mg) q 4 hours and Ibuprofen (600 mg) every 4 hours around the clock for the first few days. Follow-up in surgical office in 1-2 weeks, please call office at [phone]. If you need paperwork filled out for work please call office or stop in at office to have general surgery staff fill out for your. Prescriptions: New oxycodone 5 mg tablet 5 mg PO Q4H PRN (Reason: pain) Qty: 18 RF: 0 docusate sodium [Colace] 100 mg capsule 100 mg PO BID Qty: 60 RF: 0 pantoprazole 40 mg Tablet,Delayed Release (Dr/Ec) 40 mg PO BID Qty: 60 RF: 0 Continued amlodipine [Norvasc] 5 mg Tablet 5 mg PO QAM RF: 0 metoprolol succinate 25 mg Tablet Extended Release 24 Hr 25 mg PO BID RF: 0 Stand-Alone Forms: [facility], Opio[facility] Pain [facility], Work/School Release (Inpt) Shyann/Other Patient Handouts: Surgery Prevent DVT After Discharge Orders: Discharge Order (Routine); Ordered 01/06/19 Ordered By: Radha Pierce Admission Data Admit Date/Time: 01/04/19 16:20 Attending Provider: Steph Davison Admit Provider: Mike Bustos Primary Care Provider: Betty Mcgregor Other Providers: Gurinder Arias ; Candy Knapp ; Nancy Vázquez ; Lorri Reinoso Service: Medical Other Interventions: Discharge Summary Assessment (RN) Last Done: 01/06/19 10:35 Pending Studies at Discharge: Yes (Gallbladder pathology, will be reviewed at follow-up visit) DC Date/Time DO NOT enter until pt leaves facility: 01/06/19 15:21 Supervising Physician Co-Signing Physician Notes [employer] Supervision note: I did not personally see or examine the patient but I did discuss and verify the vance points of the history and physical along with the plan with DAAN Pierce with the following exceptions and/or additions: None Stable for discharge to home
--- NOTE | 2019-01-06 19:57 | Progress Note ---
Date of Service January 06, 2019 Assessment & Plan (1) Cholelithiasis: Patient is a 48 yo female with a 7 month history of abdominal pain with acute worsening of symptoms. Workup is consistent with possible symptomatic cholelithiasis, no definitive evidence of acute cholecystitis though she did have an increase in AST and ALT, which normalized. She underwent an EGD with GI , which showed gastritis and a small hiatal hernia. Biopsy results are pending. She is s/p laparoscopic cholecystectomy. - Farhad-operative expectations were discussed with the patient including: - Weight restriction of lifting/pushing/pulling 10 pounds x 4 weeks post-op. Her job does require lifting of very heavy objects. She will have paperwork for work, which she can have faxed to the surgery office. - Expected pain and plan for pain control farhad-operatively. Recommend Tylenol around the clock x 2-3 days post-operatively, normally would also recommend scheduled Ibuprofen but given her gastritis this should be avoided. She can apply ice over a towel to the incision. Oxycodone can be used as needed for pain not relieved by the above - Okay to shower, allowing soap and water to run over the incisions, but do not soak in standing bodies of water (bath, pool, lakes, etc) x 2 weeks post-op - The incisions should be protected from sun, and if Dermabond is used, should not be exposed to direct sunlight while in placed - Okay from surgical perspective for discharge home today - f/u in clinic in 1 week Biliary obstruction: without biliary obstruction Cholelithiasis location: other site Qualified Code(s): K80.80 - Other cholelithiasis without obstruction Subjective Patient states she is feeling better this morning. Pain is well controlled. She tolerated a diet. Denies nausea. Feels she is ready for discharge Physical Exam Constitutional: well developed and well nourished; no acute distress Respiratory: normal respiratory effort Cardiovascular: Rate/Rhythm: regular rate Gastrointestinal (Abdomen): soft, nondistended, appropriate incisional tenderness, bruising around periumbilical incision extending superior, incisions clean, well approximated with overlying Dermabond, no erythema or drainage Results & Data Vital Signs (Past 12 Hours) Vital Signs Temp Pulse Pulse Resp BP Pulse Ox 01/06/19 10:35 36.8 C 68 72 18 130/80 93 01/06/19 07:58 36.8 C 68 18 130/80 93 Laboratory Results 01/06/19 01/06/19 Range/Units 07:02 07:02 WBC 9.15 (4.8-10.8) K/uL RBC 5.00 (4.2-5.4) M/uL Hgb 14.5 (12.0-16.0) g/dL Hct 43.6 (37-47) % MCV 87.2 (80-100) fL MCH 29.0 (25-34) pg MCHC 33.3 (32-36) g/dL RDW Std Deviation 43.0 (36.4-46.3) fL RDW Coeff of Luiza 13.6 (11.5-14.5) % Plt Count 212 (130-400) K/uL MPV 12.1 H (7.4-10.4) fL Immature Gran % (Auto) 0.2 % Neut % (Auto) 79.0 % Lymph % (Auto) 11.0 % Lawrence % (Auto) 8.5 % Eos % (Auto) 1.0 % Baso % (Auto) 0.3 % Immature Gran # (Auto) 0.02 (0.00-0.02) K/uL Neut # (Auto) 7.22 H (1.4-6.5) K/uL Lymph # (Auto) 1.01 L (1.2-3.4) K/uL Lawrence # (Auto) 0.78 H (0.11-0.59) K/uL Eos # (Auto) 0.09 (0-0.5) K/uL Baso # (Auto) 0.03 (0-0.2) K/uL Sodium 143 (136-145) mmol/L Potassium 3.6 (3.5-5.1) mmol/L Chloride 110 H (98-107) mmol/L Carbon Dioxide 25 (21-32) mmol/L Anion Gap 8.0 (3-11) BUN 9 (7-18) mg/dl Creatinine 1.09 (0.6-1.2) mg/dl Est Cr Clr Drug Dosing 75.7 ml/min Est GFR ( Amer) 69.0 Est GFR (Non-Af Amer) 59.6 BUN/Creatinine Ratio 7.9 L (10-20) Glucose 99 (70-99) mg/dl Calcium 9.3 (8.5-10.1) mg/dl Magnesium 2.3 (1.8-2.4) mg/dl
== END 2019-01-06 15:21 | disposition home or self-care (01) | DRG 418 ==
LOC: ED 12:35 → 3N 12:35 → SUATTDRO 15:09 → 3N 16:27